=== PATIENT | female | born 1980 | race American Indian/Alaskan Native ===

== ENCOUNTER 2016-09-13 04:49 | Inpatient (IN) | payer OTHER ==
[2016-09-13 05:45] LABS: Basophils % (Auto) 0.4 % (0.0-1.8); Eosinophils % (Auto) 0.7 % (0.0-4.3); Hematocrit 35.8 % (30.3-42.9); Hemoglobin 11.7 gm/dl (10.1-14.3); Mean Corpuscular HGB Conc 33 % (30-34); Mean Corpuscular Hemoglobin 27 pg (28-32); Mean Corpuscular Volume 82 fl (79-97); Platelet Count 360 K/mm3 (140-440); Red Blood Count 4.39 M/mm3 (3.65-5.03); Red Cell Distribution Width 13.2 % (13.2-15.2); White Blood Count 14.8 K/mm3 (4.5-11.0)
[2016-09-13 06:07] LABS: Alanine Aminotransferase 13 units/L (7-56); Albumin 4.5 g/dL (3.9-5); Albumin/Globulin Ratio 1.3 %; Alkaline Phosphatase 89 units/L (35-129); Anion Gap 23 mmol/L; Blood Urea Nitrogen 15 mg/dL (7-17); Calcium 9.5 mg/dL (8.4-10.2); Carbon Dioxide 20 mmol/L (22-30); Chloride 101.2 mmol/L (98-107); Glucose 175 mg/dL (65-100); Lipase 17 units/L (13-60); Potassium 3.6 mmol/L (3.6-5.0); Sodium 141 mmol/L (137-145); Total Protein 8.1 g/dL (6.3-8.2)
[2016-09-13] MEDS ORDERED: ZOFRAN ONE (06:36)
[2016-09-13] MEDS ORDERED: ZOFRAN IV ONE ×2 (06:37→07:07)
[2016-09-13 06:56] LABS: Bacteria,Urine 1+ /HPF (Negative); Bilirubin,Urine NEG (Negative); Blood,Urine LG (Negative); Ketones,Urine 80 mg/dL (Negative); Leukocyte Esterase,Urine NEG (Negative); Mucus,Urine 3+ /HPF; Nitrite,Urine NEG (Negative); Urobilinogen,Urine < 2.0 mg/dL (<2.0)
[2016-09-13] MEDS ORDERED: ATIVAN IV ONE ×2 (07:07→09:25)
[2016-09-13] MEDS ORDERED: NACL 0.9% 1000 ML IV ONE (07:07)
[2016-09-13] MEDS ORDERED: PROTONIX IV ONE (07:07)
--- NOTE | 2016-09-13 07:09 | Emergency Department Report ---
HPI - General Chief Complaint: Abdominal Pain Time Seen by Provider: 09/13/16 06:59 - HPI HPI: Chief complaint: Nausea vomiting and abdominal pain HPI: Patient is a 35-year-old female with long history of reflux and gastroparesis states for the last 2 days she's been having nausea and vomiting too numerous to count and 2 episodes of diarrhea. Patient states this is her typical gastroparesis pain describes it as sharp and diffuse. Nothing makes it better or worse. Patient is status post cholecystectomy, tubal ligation and C- section 3. There is no abdominal swelling or fever. Patient last had narcotics last week for tooth problems. Mode of arrival: private car Source: Patient Began: see above Duration: 2 days Context: see above Quality:sharp Severity: 10 out of 10 Improved with: nothing Worsened with: nothing Associated signs and symptoms: see above ED Past Medical Hx - Past Medical History Previous Medical History?: Yes Hx GERD: Yes Hx Headaches / Migraines: Yes Hx Kidney Stones: Yes (2010) Additional medical history: GASTROPARESIS - Surgical History Past Surgical History?: Yes Hx Cholecystectomy: Yes Additional Surgical History: x 2 , left ovary removed - Social History Smoking Status: Never Smoker Substance Use Type: None - Medications Home Medications: Home Medications Medication Instructions Recorded Confirmed Last Taken Type Doxycycline [Vibramycin] 100 mg PO Q12HR 09/13/16 09/13/16 09/12/16 History ED Review of Systems ROS: Stated complaint: CP Other details as noted in HPI ROS Constitutional: No fever ENT: No uri symptoms Cardiovascular: No chest pain Respiratory: No sob or cough GI: See HPI : No dysuria frequency or urgency, Skin: No rash Neuro: No focal weakness or numbness Psych: No depression Dao/lymph: No edema Physical Exam - Physical Exam Vital Signs: Vital Signs 09/13/16 09/13/16 05:04 06:22 Temperature 98.7 F 98.1 F Pulse Rate 88 78 Respiratory 24 16 Rate Blood Pressure 112/84 Blood Pressure 93/56 [Left] O2 Sat by Pulse 100 100 Oximetry Physical Exam: GENERAL: The patient is well-developed well-nourished . Bilious emesis. Patient appears uncomfortable. HEENT: Normocephalic. Atraumatic. Extraocular motions are intact. Patient has moist mucous membranes. NECK: Supple. No meningitic signs are noted. There is no adenopathy noted. CHEST/LUNGS: Clear to auscultation. There is no respiratory distress noted. HEART/CARDIOVASCULAR: Regular. There is no tachycardia. There is no gallop rub or murmur. ABDOMEN: Abdomen is soft, nontender. Patient has normal bowel sounds. There is no abdominal distention. SKIN: There is no rash. There is no edema. There is no diaphoresis. NEURO: The patient is awake, alert, and oriented. The patient is cooperative. The patient has no focal neurologic deficits. The patient has normal speech. MUSCULOSKELETAL: There is no tenderness or deformity. There is no limitation range of motion. There is no evidence of acute injury. ED Course Vital Signs 09/13/16 09/13/16 05:04 06:22 Temperature 98.7 F 98.1 F Pulse Rate 88 78 Respiratory 24 16 Rate Blood Pressure 112/84 Blood Pressure 93/56 [Left] O2 Sat by Pulse 100 100 Oximetry - Reevaluation(s) Reevaluation #1: 09/13/16 07:12 Patient given 4 mg of IV Zofran prior to my evaluation. Patient will be given a liter of normal saline, another 4 mg of Zofran, 1 mg of Ativan and 40 mg of IV Protonix. 09/13/16 10:22 Patient continues to have emesis and was given 4 mg morphine, 4 mg of Zofran and 25 mg suppository of Phenergan. Patient also given a second milligram of Ativan. Patient states she cannot take Reglan. Patient states she is in when she has this problem she has been admitted for several days. ED Medical Decision Making - Lab Data Result diagrams: 09/13/16 05:24 09/13/16 05:24 Laboratory Tests 09/13/16 09/13/16 05:24 06:22 Lipase 17 Ur Specific [place] 1.024 Urine Protein 100 mg/dl Urine Glucose (UA) Neg Urine Ketones 80 Urine Blood Lg Urine HCG, Qual Negative - EKG Data -: EKG Interpreted by Me EKG shows normal: sinus rhythm Rate: normal (71) - EKG Data When compared to previous EKG there are: no significant change Interpretation: normal EKG Critical care attestation.: If time is entered above; I have spent that time in minutes in the direct care of this critically ill patient, excluding procedure time. ED Disposition Clinical Impression: Gastroparesis Disposition: OP ADMITTED IP TO THIS HOSP Is pt being admited?: Yes Does the pt Need Aspirin: No Condition: Fair Instructions: Abdominal Pain (ED) Referrals: PRIMARY CARE, [Primary Care Provider] - 3-5 Days Time of Disposition: 10:22 (admit to the hospitalist)
[2016-09-13] MEDS ORDERED: MORPHINE IV ONE (08:38)
[2016-09-13] MEDS ORDERED: PHENERGAN PR ONE (08:48)
[2016-09-13] MEDS ORDERED: ATIVAN ONE (09:23)
[2016-09-13] MEDS ORDERED: NOVOLOG SUB-Q SCH (11:30)
[2016-09-13] MEDS ORDERED: D50W (25GM) IV PRN (11:50)
[2016-09-13] MEDS: PROTONIX IV SCH ×2 (13:25→23:10)
[2016-09-13] MEDS: MORPHINE IV PRN ×3 (13:39→23:34)
[2016-09-13] MEDS: ZOFRAN IV PRN ×2 (13:39→18:45)
--- NOTE | 2016-09-13 14:57 | History and Physical Report ---
History of Present Illness Date of examination: 09/13/16 Date of admission: 09/13/16 11:47 Chief complaint: Abdominal pain nausea vomiting. History of present illness: Patient is a 35-year-old lady who presented emergency department with severe abdominal pain and epigastric in location nausea vomiting. Vomited about 8 times a day for the past 3 days since onset of symptoms. Denies any hematemesis or melena. Came to the emergency department where patient was found to have elevated blood sugar with UTI. A1c was 5.1. Admission was therefore requested. Past History Past Medical History: other (UTI, abdominal pain nausea vomiting, hyperemesis gravidarum) Social history: denies: smoking, alcohol abuse Family history: no significant family history Medications and Allergies Allergies Allergy/AdvReac Type Severity Reaction Status Date / Time metoclopramide HCl AdvReac Mild Unknown Verified 04/11/16 09:25 [From [facility]] Home Medications Medication Instructions Recorded Confirmed Last Taken Type Doxycycline [Vibramycin] 100 mg PO Q12HR 09/13/16 09/13/16 09/12/16 History Active Meds: Active Medications Dextrose/Sodium Chloride (D5/0.45ns) 1,000 mls @ 150 mls/hr IV DIRECT KENNY Morphine Sulfate (Morphine) 4 mg IV Q4H PRN PRN Reason: Pain, Moderate (4-6) Last Admin: 09/13/16 13:39 Dose: 4 mg Ondansetron HCl (Zofran) 4 mg IV Q4H PRN PRN Reason: Nausea And Vomiting Last Admin: 09/13/16 13:39 Dose: 4 mg Pantoprazole Sodium (Protonix) 40 mg IV BID [facility] Last Admin: 09/13/16 13:25 Dose: Not Given Review of system Constitutional: Well Nouridhed and Well developed. Head: NC/ AT Eyes: Denies any visual impairments. No discharge from the eyes Nose: Denies any rhinorrhea or epistaxis Throats: Denies any post nasal drainage. Ears: Denies any hearing deficits Cardiovascular system: Denies any chest pain, shortness of breath, orthopnea, paroxysmal nocturnal dyspnea, or palpitation. Respiratory system: Denies any cough, difficulty breathing, wheezing, pleuritic chest pain, Gastrointestinal system: Has abdominal pain, nausea vomiting, No hematemesis or melena. Neurological system: Denies any headache, slurred speech, facial droop, lateralizing weakness Genitalia system: Denies any dysuria, urinary frequency or urgency, urethral discharge Skin: No rashes, hyperpigmented spots. Hematological: Denies any cervical tenderness hemorrhages or petechia. Immunological: Denies any multiple septic spots, Lymphatic: Denies any generalized lymphadenopathy. Endocrine: Denies any polyuria, polydipsia, polyphagia. No heat or cold intolerance. Musculoskeletal system: No joint pain or swelling. Psych: No visual, tactile, auditory or hallucination Exam - Constitutional Vitals: Temp Pulse Resp BP Pulse Ox 98.0 F 82 16 104/59 100 09/13/16 13:00 09/13/16 13:00 09/13/16 13:00 09/13/16 13:00 09/13/16 13:00 General appearance: Present: no acute distress, well-nourished - EENT Eyes: Present: PERRL ENT: hearing intact, clear oral mucosa - Neck Neck: Present: supple, normal ROM - Respiratory Respiratory effort: normal Respiratory: bilateral: CTA - Cardiovascular Heart Sounds: Present: S1 & S2. Absent: rub, click - Extremities Extremities: pulses symmetrical, No edema Peripheral Pulses: within normal limits - Abdominal General gastrointestinal: Present: soft, non-tender, non-distended, normal bowel sounds Female genitourinary: Present: normal - Integumentary Integumentary: Present: clear, warm, dry - Musculoskeletal Musculoskeletal: gait normal, strength equal bilaterally - Psychiatric Psychiatric: appropriate mood/affect, intact judgment & insight - Neurologic Neurologic: CNII-XII intact, moves all extremities Results - Labs CBC & Chem 7: 09/13/16 05:24 09/13/16 05:24 Assessment and Plan Admit patient to medical floor 1. Gastroparesis: Commence patient on nothing by mouth IV fluid with D5 half- normal. IV Protonix, IV Zofran. 2. UTI; urine culture. IV Levaquin. 3. Hypoglycemia of undetermined icicles significance. A1c is 5.1. This 4. Leukocytosis likely secondary to UTI. We will trend. 5. DVT prophylaxis with Lovenox and GI prophylaxis with Protonix. Discussed management plan with patient who expressed understanding. Spent 32 minutes during this admission process
[2016-09-13] MEDS: LEVAQUIN 750MG/150ML 750 MG/150 ML BAG IV SCH (15:14)
[2016-09-13] MEDS: D5/0.45NS 1,000 ML IV SCH (15:15)
[2016-09-13] MEDS ORDERED: D5NS 0.2% 1,000 ML IV SCH (15:30)
[2016-09-13 17:25] LABS: Alanine Aminotransferase 12 units/L (7-56); Albumin 4.2 g/dL (3.9-5); Albumin/Globulin Ratio 1.2 %; Alkaline Phosphatase 80 units/L (35-129); Anion Gap 24 mmol/L; Bilirubin,Total 0.7 mg/dL (0.1-1.2); Blood Urea Nitrogen 13 mg/dL (7-17); Calcium 8.8 mg/dL (8.4-10.2); Carbon Dioxide 17 mmol/L (22-30); Chloride 103.1 mmol/L (98-107); Glucose 117 mg/dL (65-100); Potassium 3.7 mmol/L (3.6-5.0); Sodium 140 mmol/L (137-145); Total Protein 7.6 g/dL (6.3-8.2)
[2016-09-14 09:23] LABS: Hematocrit 31.4 % (30.3-42.9); Hemoglobin 10.4 gm/dl (10.1-14.3); Mean Corpuscular HGB Conc 33 % (30-34); Mean Corpuscular Hemoglobin 27 pg (28-32); Mean Corpuscular Volume 82 fl (79-97); Platelet Count 315 K/mm3 (140-440); Red Blood Count 3.83 M/mm3 (3.65-5.03); Red Cell Distribution Width 13.4 % (13.2-15.2); White Blood Count 9.1 K/mm3 (4.5-11.0)
[2016-09-14] MEDS: MORPHINE IV PRN ×3 (09:25→22:29)
[2016-09-14] MEDS: PROTONIX IV SCH ×2 (09:30→22:29)
[2016-09-14] MEDS: LEVAQUIN 750MG/150ML 750 MG/150 ML BAG IV SCH (09:36)
[2016-09-14] MEDS: PROAMATINE PO SCH ×2 (09:41→18:23)
--- NOTE | 2016-09-14 13:43 | Progress Note ---
Assessment and Plan Assessment and plan: 1. Possible gastritis / GERD with vomitting- improving; cont PPI; will start full liquid diet and advance as tolerated; she will be referred to GI as outpatient for further evaluation 2. UTI -cont levaquin; wbc is now normal 3.DVT prophylaxis-lovenox for d/c in the a.m if able to tolerate diet History Interval history: f/u UTl; vomitting Patient seen at the bedside; no more vomiting; had pain in the epigastrium but not now; no urinary symptoms Hospitalist Physical - Constitutional Vitals: Temp Pulse Resp BP Pulse Ox 98.5 F 68 18 110/65 100 09/14/16 08:00 09/14/16 08:00 09/14/16 08:00 09/14/16 08:00 09/14/16 08:00 General appearance: Present: no acute distress, well-nourished - EENT Eyes: Present: PERRL, EOM intact. Absent: scleral icterus, conjunctival injection ENT: hearing intact, clear oral mucosa - Neck Neck: Present: supple, normal ROM. Absent: enlarged thyroid, masses or JVD - Respiratory Respiratory effort: normal Respiratory: negative: diminished, rales, rhonchi, wheezing - Cardiovascular Rhythm: regular Heart Sounds: Present: S1 & S2. Absent: gallop - Extremities Extremities: no ischemia, pulses intact, pulses symmetrical, No edema Peripheral Pulses: within normal limits - Abdominal General gastrointestinal: soft, non-tender, non-distended, normal bowel sounds - Integumentary Integumentary: Present: clear - Psychiatric Psychiatric: appropriate mood/affect, intact judgment & insight, cooperative - Neurologic Neurologic: CNII-XII intact, moves all extremities Results - Labs CBC & Chem 7: 09/14/16 08:46 09/13/16 13:17 Labs: Laboratory Last Values WBC 9.1 K/mm3 (4.5-11.0) 09/14/16 08:46 RBC 3.83 M/mm3 (3.65-5.03) 09/14/16 08:46 Hgb 10.4 gm/dl (10.1-14.3) 09/14/16 08:46 Hct 31.4 % (30.3-42.9) 09/14/16 08:46 MCV 82 fl (79-97) 09/14/16 08:46 MCH 27 pg (28-32) L 09/14/16 08:46 MCHC 33 % (30-34) 09/14/16 08:46 RDW 13.4 % (13.2-15.2) 09/14/16 08:46 Plt Count 315 K/mm3 (140-440) 09/14/16 08:46 Lymph % (Auto) 10.2 % (13.4-35.0) L 09/13/16 05:24 [place] % (Auto) 5.3 % (0.0-7.3) 09/13/16 05:24 Eos % (Auto) 0.7 % (0.0-4.3) 09/13/16 05:24 Baso % (Auto) 0.4 % (0.0-1.8) 09/13/16 05:24 Lymph # 1.5 K/mm3 (1.2-5.4) 09/13/16 05:24 [place] # 0.8 K/mm3 (0.0-0.8) 09/13/16 05:24 Eos # 0.1 K/mm3 (0.0-0.4) 09/13/16 05:24 Baso # 0.1 K/mm3 (0.0-0.1) 09/13/16 05:24 Seg Neutrophils % 83.4 % (40.0-70.0) H 09/13/16 05:24 Seg Neutrophils # 12.4 K/mm3 (1.8-7.7) H 09/13/16 05:24 Sodium 140 mmol/L (137-145) 09/13/16 13:17 Potassium 3.7 mmol/L (3.6-5.0) 09/13/16 13:17 Chloride 103.1 mmol/L (98-107) 09/13/16 13:17 Carbon Dioxide 17 mmol/L (22-30) L 09/13/16 13:17 Anion Gap 24 mmol/L 09/13/16 13:17 BUN 13 mg/dL (7-17) 09/13/16 13:17 Creatinine 0.5 mg/dL (0.7-1.2) L 09/13/16 13:17 Estimated GFR > 60 ml/min 09/13/16 13:17 BUN/Creatinine Ratio 26.00 % 09/13/16 13:17 Glucose 117 mg/dL (65-100) H 09/13/16 13:17 Hemoglobin A1c 5.1 % (4-6) 09/13/16 05:24 Calcium 8.8 mg/dL (8.4-10.2) 09/13/16 13:17 Total Bilirubin 0.7 mg/dL (0.1-1.2) 09/13/16 13:17 AST 20 units/L (5-40) 09/13/16 13:17 ALT 12 units/L (7-56) 09/13/16 13:17 Alkaline Phosphatase 80 units/L (35-129) 09/13/16 13:17 Total Protein 7.6 g/dL (6.3-8.2) 09/13/16 13:17 Albumin 4.2 g/dL (3.9-5) 09/13/16 13:17 Albumin/Globulin Ratio 1.2 % 09/13/16 13:17 Triglycerides 38 mg/dL (2-149) 09/13/16 13:17 Cholesterol 126 mg/dL (50-199) 09/13/16 13:17 LDL Cholesterol Direct 62 mg/dL (50-130) 09/13/16 13:17 HDL Cholesterol 57 mg/dL (40-59) 09/13/16 13:17 Cholesterol/HDL Ratio 2.21 % 09/13/16 13:17 Lipase 17 units/L (13-60) 09/13/16 05:24 Urine Color Yellow (Yellow) 09/13/16 06:22 Urine Turbidity Slightly-cloudy (Clear) 09/13/16 06:22 Urine pH 5.0 (5.0-7.0) 09/13/16 06:22 Ur Specific [place] 1.024 (1.003-1.030) 09/13/16 06:22 Urine Protein 100 mg/dl mg/dL (Negative) 09/13/16 06:22 Urine Glucose (UA) Neg mg/dL (Negative) 09/13/16 06:22 Urine Ketones 80 mg/dL (Negative) 09/13/16 06:22 Urine Blood Lg (Negative) 09/13/16 06:22 Urine Nitrite Neg (Negative) 09/13/16 06:22 Urine Bilirubin Neg (Negative) 09/13/16 06:22 Urine Urobilinogen < 2.0 mg/dL (<2.0) 09/13/16 06:22 Ur Leukocyte Esterase Neg (Negative) 09/13/16 06:22 Urine WBC (Auto) 12.0 /HPF (0.0-6.0) H 09/13/16 06:22 Urine RBC (Auto) 16.0 /HPF (0.0-6.0) 09/13/16 06:22 U Epithel Cells (Auto) 5.0 /HPF (0-13.0) 09/13/16 06:22 Urine Bacteria (Auto) 1+ /HPF (Negative) 09/13/16 06:22 Urine Mucus 3+ /HPF 09/13/16 06:22 Urine HCG, Qual Negative (Negative) 09/13/16 06:22
[2016-09-14 14:08] LABS: Alanine Aminotransferase 12 units/L (7-56); Albumin 3.9 g/dL (3.9-5); Albumin/Globulin Ratio 1.3 %; Alkaline Phosphatase 67 units/L (35-129); Anion Gap 19 mmol/L; Blood Urea Nitrogen 11 mg/dL (7-17); Calcium 8.5 mg/dL (8.4-10.2); Carbon Dioxide 23 mmol/L (22-30); Chloride 103.4 mmol/L (98-107); Glucose 84 mg/dL (65-100); Potassium 3.1 mmol/L (3.6-5.0); Sodium 142 mmol/L (137-145)
[2016-09-14] MEDS: ZOFRAN IV PRN ×3 (14:51→22:29)
[2016-09-14] MEDS: D5/0.45NS 1,000 ML IV SCH (18:15)
[2016-09-14 20:24] LABS: Basophils % (Auto) 0.3 % (0.0-1.8); Hematocrit 31.8 % (30.3-42.9); Hemoglobin 10.6 gm/dl (10.1-14.3); Mean Corpuscular HGB Conc 33 % (30-34); Mean Corpuscular Hemoglobin 27 pg (28-32); Mean Corpuscular Volume 82 fl (79-97); Platelet Count 308 K/mm3 (140-440); Red Cell Distribution Width 13.1 % (13.2-15.2); White Blood Count 8.2 K/mm3 (4.5-11.0)
[2016-09-15] MEDS: D5/0.45NS 1,000 ML IV SCH ×2 (00:49→07:23)
[2016-09-15] MEDS: PROAMATINE PO SCH ×2 (00:49→11:37)
[2016-09-15] MEDS: ZOFRAN IV PRN ×4 (07:23→20:45)
[2016-09-15] MEDS: MORPHINE IV PRN ×4 (07:24→20:44)
--- NOTE | 2016-09-15 08:30 | Admit Criteria Form ---
Admission Criteria Documentation: VOMITING Clinical Indications for Admission to Inpatient Care ( Place 'X' for any and all applicable criteria): Admission is indicated for ANY ONE of the following(1)(2)(3): [X]I. Inpatient admission required rather than observation care because of ANY ONE of the following: [ ]i) Hemodynamic instability that is severe or persistent [X]ii) Vomiting that is severe or persistent [ ]iii) Severe electrolyte abnormalities requiring inpatient care [ ]iv) Severe pain requiring acute inpatient management [ ]v) High fever or infection requiring inpatient admission as indicated by ANY ONE of the following(7)(8): [ ]1) Appropriate outpatient or observation care antimicrobial treatment unavailable, not effective, or not feasible [ ]2) Documented bacteremia [ ]3) Temp >104.9 degrees F (40.5 degrees C) (oral) [ ]4) Temp >103.1 degrees F (39.5 C) (oral) or <96.8 degrees F (36 C) (rectal) that does not respond to all emergency treatment measures [ ]vi) Acute renal failure [ ]vii) IV fluid to replace significant ongoing losses (greater than 3 L/m2 per day) [ ]viii) Parenteral nutrition regimen that must be implemented on inpatient basis [ ]ix) Other condition, treatment or monitoring requiring inpatient admission [ ]II. Complete or partial gastrointestinal obstruction [ ]III. Other cause of vomiting requiring hospitalization (eg, poisoning, increased intracranial pressure) [ ]IV. Vomiting due to significant metabolic derangement (eg, severe hypercalcemia, diabetic ketoacidosis) Extended stay beyond goal length of stay may be needed for(1)(4): [ ]a) Severe vomiting [ ]b) Persistent vomiting, vital sign changes, severe electrolyte imbalance , or diagnosed cause of vomiting that requires continued hospitalization (eg, gastrointestinal obstruction , increased intracranial pressure) [ ]c) Surgery to treat identified causes of vomiting (eg, bowel obstruction , intracranial process) [ ]d) Comorbid illness that requires inpatient care (eg, acute heart failure , renal failure) [ ]e) Need for inpatient endoscopy The original [facility] [email or web address] content created by [facility] [employer] has been revised. The portions of the content which have been revised are identified through the use of italic text or in bold, and [facility] [employer] has neither reviewed nor approved the modified material. All other unmodified content is copyright [facility]. Please see references footnoted in the original [facility] edition 2016 Admission Criteria Met: Yes
[2016-09-15] MEDS: PROTONIX IV SCH ×2 (11:35→21:00)
[2016-09-15] MEDS: LEVAQUIN 750MG/150ML 750 MG/150 ML BAG IV SCH (11:38)
[2016-09-15 11:47] LABS: Anion Gap 18 mmol/L; Blood Urea Nitrogen 7 mg/dL (7-17); Calcium 8.1 mg/dL (8.4-10.2); Carbon Dioxide 23 mmol/L (22-30); Chloride 101.3 mmol/L (98-107); Glucose 108 mg/dL (65-100); Sodium 139 mmol/L (137-145)
[2016-09-15 11:51] LABS: Potassium 2.8 mmol/L (3.6-5.0)
--- NOTE | 2016-09-15 12:28 | Progress Note ---
Assessment and Plan Assessment and plan: 1. Possible gastritis / GERD / PUD with vomitting-cont PPI; keep NPO- not tolerating diet; consult GI; 2. UTI -d/c cont levaquina after today's dose; today is day 3 3. Moderate hypokalemia due to GI loss- will replace with IV supplementation; check Mag / PO4; monitor 4. DVT prophylaxis-lovenox History Interval history: f/u UTl; vomitting Patient seen at the bedside; vomitted last night; nausea with retching; epigastric pain Hospitalist Physical - Constitutional Vitals: Temp Pulse Resp BP Pulse Ox 98.2 F 65 20 117/74 100 09/15/16 07:00 09/15/16 07:00 09/15/16 07:00 09/15/16 07:00 09/15/16 07:00 General appearance: Present: no acute distress, well-nourished - EENT Eyes: Present: PERRL, EOM intact. Absent: scleral icterus, conjunctival injection ENT: hearing intact, clear oral mucosa, no oropharyngeal erythema, no poor dentition - Neck Neck: Present: supple, normal ROM. Absent: enlarged thyroid, masses or JVD - Respiratory Respiratory effort: normal Respiratory: negative: diminished, rales, rhonchi, wheezing - Cardiovascular Rhythm: regular Heart Sounds: Present: S1 & S2. Absent: gallop - Extremities Extremities: no ischemia, pulses intact, pulses symmetrical, No edema Peripheral Pulses: within normal limits - Abdominal General gastrointestinal: soft, tender (epigastrium), non-distended, normal bowel sounds - Integumentary Integumentary: Present: clear - Psychiatric Psychiatric: appropriate mood/affect, intact judgment & insight, cooperative - Neurologic Neurologic: CNII-XII intact, moves all extremities Results - Labs CBC & Chem 7: 09/14/16 20:01 09/15/16 10:53 Labs: Laboratory Last Values WBC 8.2 K/mm3 (4.5-11.0) 09/14/16 20:01 RBC 3.90 M/mm3 (3.65-5.03) 09/14/16 20:01 Hgb 10.6 gm/dl (10.1-14.3) 09/14/16 20:01 Hct 31.8 % (30.3-42.9) 09/14/16 20:01 MCV 82 fl (79-97) 09/14/16 20:01 MCH 27 pg (28-32) L 09/14/16 20:01 MCHC 33 % (30-34) 09/14/16 20:01 RDW 13.1 % (13.2-15.2) L 09/14/16 20:01 Plt Count 308 K/mm3 (140-440) 09/14/16 20:01 Lymph % (Auto) 20.5 % (13.4-35.0) 09/14/16 20:01 [place] % (Auto) 10.5 % (0.0-7.3) H 09/14/16 20:01 Eos % (Auto) 3.0 % (0.0-4.3) 09/14/16 20:01 Baso % (Auto) 0.3 % (0.0-1.8) 09/14/16 20:01 Lymph # 1.7 K/mm3 (1.2-5.4) 09/14/16 20:01 [place] # 0.9 K/mm3 (0.0-0.8) H 09/14/16 20:01 Eos # 0.2 K/mm3 (0.0-0.4) 09/14/16 20:01 Baso # 0.0 K/mm3 (0.0-0.1) 09/14/16 20:01 Seg Neutrophils % 65.7 % (40.0-70.0) 09/14/16 20:01 Seg Neutrophils # 5.4 K/mm3 (1.8-7.7) 09/14/16 20:01 Sodium 139 mmol/L (137-145) 09/15/16 10:53 Potassium 2.8 mmol/L (3.6-5.0) L* 09/15/16 10:53 Chloride 101.3 mmol/L (98-107) 09/15/16 10:53 Carbon Dioxide 23 mmol/L (22-30) 09/15/16 10:53 Anion Gap 18 mmol/L 09/15/16 10:53 BUN 7 mg/dL (7-17) 09/15/16 10:53 Creatinine 0.4 mg/dL (0.7-1.2) L 09/15/16 10:53 Estimated GFR > 60 ml/min 09/15/16 10:53 BUN/Creatinine Ratio 17.50 % 09/15/16 10:53 Glucose 108 mg/dL (65-100) H 09/15/16 10:53 POC Glucose 103 (70-105) 09/15/16 12:04 Hemoglobin A1c 5.1 % (4-6) 09/13/16 05:24 Calcium 8.1 mg/dL (8.4-10.2) L 09/15/16 10:53 Total Bilirubin 1.0 mg/dL (0.1-1.2) 09/14/16 13:29 AST 20 units/L (5-40) 09/14/16 13:29 ALT 12 units/L (7-56) 09/14/16 13:29 Alkaline Phosphatase 67 units/L (35-129) 09/14/16 13:29 Total Protein 7.0 g/dL (6.3-8.2) 09/14/16 13:29 Albumin 3.9 g/dL (3.9-5) 09/14/16 13:29 Albumin/Globulin Ratio 1.3 % 09/14/16 13:29 Triglycerides 38 mg/dL (2-149) 09/13/16 13:17 Cholesterol 126 mg/dL (50-199) 09/13/16 13:17 LDL Cholesterol Direct 62 mg/dL (50-130) 09/13/16 13:17 HDL Cholesterol 57 mg/dL (40-59) 09/13/16 13:17 Cholesterol/HDL Ratio 2.21 % 09/13/16 13:17 Lipase 17 units/L (13-60) 09/13/16 05:24 Urine Color Yellow (Yellow) 09/13/16 06:22 Urine Turbidity Slightly-cloudy (Clear) 09/13/16 06:22 Urine pH 5.0 (5.0-7.0) 09/13/16 06:22 Ur Specific [place] 1.024 (1.003-1.030) 09/13/16 06:22 Urine Protein 100 mg/dl mg/dL (Negative) 09/13/16 06:22 Urine Glucose (UA) Neg mg/dL (Negative) 09/13/16 06:22 Urine Ketones 80 mg/dL (Negative) 09/13/16 06:22 Urine Blood Lg (Negative) 09/13/16 06:22 Urine Nitrite Neg (Negative) 09/13/16 06:22 Urine Bilirubin Neg (Negative) 09/13/16 06:22 Urine Urobilinogen < 2.0 mg/dL (<2.0) 09/13/16 06:22 Ur Leukocyte Esterase Neg (Negative) 09/13/16 06:22 Urine WBC (Auto) 12.0 /HPF (0.0-6.0) H 09/13/16 06:22 Urine RBC (Auto) 16.0 /HPF (0.0-6.0) 09/13/16 06:22 U Epithel Cells (Auto) 5.0 /HPF (0-13.0) 09/13/16 06:22 Urine Bacteria (Auto) 1+ /HPF (Negative) 09/13/16 06:22 Urine Mucus 3+ /HPF 09/13/16 06:22 Urine HCG, Qual Negative (Negative) 09/13/16 06:22
[2016-09-15 13:58] LABS: Magnesium 1.6 mg/dL (1.7-2.3); Phosphorous 1.8 mg/dL (2.5-4.5)
--- NOTE | 2016-09-15 14:29 | Gastroenterology Consultation ---
History of Present Illness - Reason for Consult Consult date: 09/15/16 Epigastric pain, nausea/vomiting, heartburn Requesting physician: DEANGELO DOBBS - History of Present Illness Asked to see this pleasant 35yo woman for evaluation of epigastric pain, vomiting and heartburn. She states that heartburn has been since 2000; she is presently on Prilosec 20mg OTC at home w/o success. She also attests to burning upper abdominal pain and periods of N/V; she was tried on a diet during her hospitalization, but states "it came right back up." No black, tarry stools , chest pain/SOB. Pt also has reported gastroparesis secondary to DM. Past History Past Medical History: other (UTI, abdominal pain nausea vomiting, hyperemesis gravidarum) Past Surgical History: , Other (tubal ligation) Social history: denies: smoking, alcohol abuse Family history: no significant family history Medications and Allergies Allergies Allergy/AdvReac Type Severity Reaction Status Date / Time metoclopramide HCl AdvReac Mild Unknown Verified 04/11/16 09:25 [From [facility]] Home Medications Medication Instructions Recorded Confirmed Last Taken Type Doxycycline [Vibramycin] 100 mg PO Q12HR 09/13/16 09/13/16 09/12/16 History Active Meds: Active Medications Levofloxacin/Dextrose (Levaquin 750mg/150ml) 750 mg in 150 mls @ 100 mls/hr IV Q24HR KENNY PRN Reason: Protocol Stop: 09/16/16 14:59 Last Admin: 09/15/16 11:38 Dose: 100 mls/hr Potassium Chloride/Dextrose/Sod Cl (D5w/0.45% Nacl/Kcl 20 Meq) 20 meq in 1,000 mls @ 100 mls/hr IV DIRECT KENNY Potassium Chloride (Kcl 20meq/100ml) 20 meq in 100 mls @ 100 mls/hr IV Q1H KENNY Stop: 09/15/16 15:59 Morphine Sulfate (Morphine) 4 mg IV Q4H PRN PRN Reason: Pain, Moderate (4-6) Last Admin: 09/15/16 11:35 Dose: 4 mg Ondansetron HCl (Zofran) 4 mg IV Q4H PRN PRN Reason: Nausea And Vomiting Last Admin: 09/15/16 11:35 Dose: 4 mg Pantoprazole Sodium (Protonix) 40 mg IV BID KENNY Last Admin: 09/15/16 11:35 Dose: 40 mg Review of Systems - Review of Systems All systems: negative (abdominal pain, nausea/vomiting, heartburn) Exam - Constitutional Vital Signs: Temp Pulse Resp BP Pulse Ox 98.2 F 65 20 117/74 100 09/15/16 07:00 09/15/16 07:00 09/15/16 07:00 09/15/16 07:00 09/15/16 07:00 General appearance: no acute distress - Neck Neck: supple - Respiratory Respiratory: bilateral: CTA - Cardiovascular Rhythm: regular Heart Sounds: Present: S1 & S2 Extremities: No edema - Gastrointestinal General gastrointestinal: Present: soft, non-tender, non-distended, normal bowel sounds - Integumentary Integumentary: Present: clear - Neurologic Neurological: alert and oriented x3 - Psychiatric Psychiatric: appropriate mood/affect - Labs CBC & Chem 7: 09/14/16 20:01 09/15/16 10:53 Lab Results: Laboratory Results - last 24 hr 09/14/16 09/15/16 09/15/16 20:01 07:34 10:53 WBC 8.2 RBC 3.90 Hgb 10.6 Hct 31.8 MCV 82 MCH 27 L MCHC 33 RDW 13.1 L Plt Count 308 Lymph % (Auto) 20.5 [place] % (Auto) 10.5 H Eos % (Auto) 3.0 Baso % (Auto) 0.3 Lymph # 1.7 Geary # 0.9 H Eos # 0.2 Baso # 0.0 Seg Neutrophils % 65.7 Seg Neutrophils # 5.4 Sodium 139 Potassium 2.8 L* Chloride 101.3 Carbon Dioxide 23 Anion Gap 18 BUN 7 Creatinine 0.4 L Estimated GFR > 60 BUN/Creatinine Ratio 17.50 Glucose 108 H POC Glucose 90 Calcium 8.1 L Phosphorus Magnesium 09/15/16 09/15/16 10:53 12:04 WBC RBC Hgb Hct MCV MCH MCHC RDW Plt Count Lymph % (Auto) [place] % (Auto) Eos % (Auto) Baso % (Auto) Lymph # Geary # Eos # Baso # Seg Neutrophils % Seg Neutrophils # Sodium Potassium Chloride Carbon Dioxide Anion Gap BUN Creatinine Estimated GFR BUN/Creatinine Ratio Glucose POC Glucose 103 Calcium Phosphorus 1.8 L Magnesium 1.6 L Assessment and Plan 35yo woman with hx of gastroparesis, with epigastric pain, vomiting, heartburn and inability to tolerate PO. Could be due to esophagitis, gastritis, PUD, gastroparesis. Rec: 1) Cont PPI 2x/day 2) Cont Reglan 3) NPO after MN for EGD tomorrow Thank you for allowing me to participate in the care of your patient. Please do not hesitate to contact me with any questions.
[2016-09-15] MEDS: KCL 20MEQ/100ML 20 MEQ/100 ML BAG IV SCH ×2 (15:38→18:30)
[2016-09-15 18:58] LABS: Eosinophils % (Auto) 0.8 % (0.0-4.3); Hematocrit 31.6 % (30.3-42.9); Hemoglobin 10.4 gm/dl (10.1-14.3); Mean Corpuscular HGB Conc 33 % (30-34); Mean Corpuscular Hemoglobin 27 pg (28-32); Mean Corpuscular Volume 82 fl (79-97); Platelet Count 298 K/mm3 (140-440); Red Blood Count 3.84 M/mm3 (3.65-5.03); Red Cell Distribution Width 13.3 % (13.2-15.2); White Blood Count 7.7 K/mm3 (4.5-11.0)
[2016-09-15] MEDS: D5W/0.45% NACL/KCL 20 MEQ 20 MEQ/1,000 ML BAG IV SCH (20:59)
[2016-09-16 05:21] LABS: Anion Gap 14 mmol/L; BUN/Creatinine Ratio 11.66; Blood Urea Nitrogen 7 mg/dL (7-17); Calcium 7.9 mg/dL (8.4-10.2); Carbon Dioxide 23 mmol/L (22-30); Glucose 91 mg/dL (65-100); Sodium 138 mmol/L (137-145)
[2016-09-16] MEDS ORDERED: POTASSIUM CHLORIDE FEEDTUBE ONE (07:00)
[2016-09-16] MEDS: KCL 10MEQ/100ML 10 MEQ/100 ML BAG IV SCH ×3 (09:13→19:07)
[2016-09-16] MEDS: D5W/0.45% NACL/KCL 20 MEQ 20 MEQ/1,000 ML BAG IV SCH (09:14)
--- NOTE | 2016-09-16 11:26 | Progress Note ---
Assessment and Plan Assessment and plan: 1. Possible gastritis / GERD / PUD with vomiting-cont PPI; keep NPO- not tolerating diet; await EGD 2. UTI -d/c cont levaquin 3. Moderate hypokalemia due to GI loss- will replace with IV supplementation; check Mag / PO4; monitor 4. DVT prophylaxis-lovenox History Interval history: No new issues overnight. Hospitalist Physical - Constitutional Vitals: Temp Pulse Resp BP Pulse Ox 98.9 F 73 15 98/57 100 09/16/16 07:25 09/16/16 07:25 09/16/16 07:25 09/16/16 07:25 09/16/16 07:25 General appearance: Present: no acute distress, well-nourished - EENT Eyes: Present: PERRL, EOM intact ENT: hearing intact, clear oral mucosa, dentition normal - Neck Neck: Present: supple, normal ROM - Respiratory Respiratory effort: normal Respiratory: bilateral: CTA - Cardiovascular Rhythm: regular Heart Sounds: Present: S1 & S2. Absent: gallop, rub - Extremities Extremities: no ischemia, No edema, Full ROM - Abdominal General gastrointestinal: soft, non-tender, non-distended, normal bowel sounds - Integumentary Integumentary: Present: clear, warm, dry - Neurologic Neurologic: CNII-XII intact, moves all extremities Results - Labs CBC & Chem 7: 09/15/16 18:19 09/16/16 04:23 Labs: Laboratory Last Values WBC 7.7 K/mm3 (4.5-11.0) 09/15/16 18: RBC 3.84 M/mm3 (3.65-5.03) 09/15/16 18: Hgb 10.4 gm/dl (10.1-14.3) 09/15/16 18: Hct 31.6 % (30.3-42.9) 09/15/16 18: MCV 82 fl (79-97) 09/15/16 18: MCH 27 pg (28-32) L 09/15/16 18: MCHC 33 % (30-34) 09/15/16 18: RDW 13.3 % (13.2-15.2) 09/15/16 18: Plt Count 298 K/mm3 (140-440) 09/15/16 18:19 Lymph % (Auto) 17.5 % (13.4-35.0) 09/15/16 18:19 [place] % (Auto) 8.6 % (0.0-7.3) H 09/15/16 18:19 Eos % (Auto) 0.8 % (0.0-4.3) 09/15/16 18:19 Baso % (Auto) 1.0 % (0.0-1.8) 09/15/16 18:19 Lymph # 1.3 K/mm3 (1.2-5.4) 09/15/16 18:19 [place] # 0.7 K/mm3 (0.0-0.8) 09/15/16 18:19 Eos # 0.1 K/mm3 (0.0-0.4) 09/15/16 18:19 Baso # 0.1 K/mm3 (0.0-0.1) 09/15/16 18:19 Seg Neutrophils % 72.1 % (40.0-70.0) H 09/15/16 18:19 Seg Neutrophils # 5.5 K/mm3 (1.8-7.7) 09/15/16 18:19 Sodium 138 mmol/L (137-145) 09/16/16 04:23 Potassium 3.0 mmol/L (3.6-5.0) L 09/16/16 04:23 Chloride 104.0 mmol/L (98-107) 09/16/16 04:23 Carbon Dioxide 23 mmol/L (22-30) 09/16/16 04:23 Anion Gap 14 mmol/L 09/16/16 04:23 BUN 7 mg/dL (7-17) 09/16/16 04:23 Creatinine 0.6 mg/dL (0.7-1.2) L 09/16/16 04:23 Estimated GFR > 60 ml/min 09/16/16 04:23 BUN/Creatinine Ratio 11.66 % 09/16/16 04:23 Glucose 91 mg/dL (65-100) 09/16/16 04:23 POC Glucose 99 (70-105) 09/16/16 06:47 Hemoglobin A1c 5.1 % (4-6) 09/13/16 05:24 Calcium 7.9 mg/dL (8.4-10.2) L 09/16/16 04:23 Phosphorus 1.8 mg/dL (2.5-4.5) L 09/15/16 10:53 Magnesium 1.6 mg/dL (1.7-2.3) L 09/15/16 10:53 Total Bilirubin 1.0 mg/dL (0.1-1.2) 09/14/16 13:29 AST 20 units/L (5-40) 09/14/16 13:29 ALT 12 units/L (7-56) 09/14/16 13:29 Alkaline Phosphatase 67 units/L (35-129) 09/14/16 13:29 Total Protein 7.0 g/dL (6.3-8.2) 09/14/16 13:29 Albumin 3.9 g/dL (3.9-5) 09/14/16 13:29 Albumin/Globulin Ratio 1.3 % 09/14/16 13:29 Triglycerides 38 mg/dL (2-149) 09/13/16 13:17 Cholesterol 126 mg/dL (50-199) 09/13/16 13:17 LDL Cholesterol Direct 62 mg/dL (50-130) 09/13/16 13:17 HDL Cholesterol 57 mg/dL (40-59) 09/13/16 13:17 Cholesterol/HDL Ratio 2.21 % 09/13/16 13:17 Lipase 17 units/L (13-60) 09/13/16 05:24 Urine Color Yellow (Yellow) 09/13/16 06:22 Urine Turbidity Slightly-cloudy (Clear) 09/13/16 06:22 Urine pH 5.0 (5.0-7.0) 09/13/16 06:22 Ur Specific [place] 1.024 (1.003-1.030) 09/13/16 06:22 Urine Protein 100 mg/dl mg/dL (Negative) 09/13/16 06:22 Urine Glucose (UA) Neg mg/dL (Negative) 09/13/16 06:22 Urine Ketones 80 mg/dL (Negative) 09/13/16 06:22 Urine Blood Lg (Negative) 09/13/16 06:22 Urine Nitrite Neg (Negative) 09/13/16 06:22 Urine Bilirubin Neg (Negative) 09/13/16 06:22 Urine Urobilinogen < 2.0 mg/dL (<2.0) 09/13/16 06:22 Ur Leukocyte Esterase Neg (Negative) 09/13/16 06:22 Urine WBC (Auto) 12.0 /HPF (0.0-6.0) H 09/13/16 06:22 Urine RBC (Auto) 16.0 /HPF (0.0-6.0) 09/13/16 06:22 U Epithel Cells (Auto) 5.0 /HPF (0-13.0) 09/13/16 06:22 Urine Bacteria (Auto) 1+ /HPF (Negative) 09/13/16 06:22 Urine Mucus 3+ /HPF 09/13/16 06:22 Urine HCG, Qual Negative (Negative) 09/13/16 06:22
[2016-09-16] MEDS ORDERED: KCL 10MEQ/100ML 10 MEQ/100 ML BAG IV ONE (12:00)
[2016-09-16] MEDS: PROTONIX IV SCH (12:23)
--- NOTE | 2016-09-16 14:41 | Anesthesia Day of Surgery ---
Anesthesia Day of Surgery - Day of Surgery Patient Examined: Yes Patient H&P Reviewed: Yes Patient is NPO: Yes
--- NOTE | 2016-09-16 14:49 | Anesthesia Consultation ---
Anesthesia Consult and Med Hx Date of service: 09/16/16 - Airway Anesthetic Teeth Evaluation: Poor (missing #8) ROM Head & Neck: Adequate Mental/Hyoid Distance: Adequate Mallampati Class: Class II Intubation Access Assessment: Probably Good - Pulmonary Exam CTA: Yes - Cardiac Exam Cardiac Exam: RRR - Pre-Operative Health Status ASA Pre-Surgery Classification: ASA1 Proposed Anesthetic Plan: MAC - Pulmonary Hx Smoking: No Hx Asthma: No COPD: No Hx Pneumonia: No - Cardiovascular System Hx Hypertension: No - Central Nervous System Hx Seizures: No CVA: No Hx Psychiatric Problems: No - Gastrointestinal Hx Gastroesophageal Reflux Disease: Yes (not well controlled) - Endocrine Hx Renal Disease: Yes (UTI) Hx End Stage Renal Disease: No Hx Liver Disease: No Hx Non-Insulin Dependent Diabetes: No Hx Hypothyroidism: No Hx Hyperthyroidism: No - Hematic Hx Anemia: No Hx Sickle Cell Disease: No - Other Systems Hx Alcohol Use: No Hx Cancer: No (ovarian cysts s/p left oophorectomy) Hx Obesity: No - Additional Comments Anesthesia Medical History Comments: NAC
[2016-09-16] MEDS ORDERED: DIPRIVAN 10 MG/ML IV ONE ×2 (14:52→16:24)
[2016-09-16] MEDS ORDERED: NACL 0.9% 1000 ML 1,000 ML IV SCH (15:00)
[2016-09-16] MEDS ORDERED: WATER FOR IRRIG STERILE IR ONE (15:21)
[2016-09-16] MEDS ORDERED: K-DUR PO ONE (17:00)
--- NOTE | 2016-09-16 17:04 | Post Operative Note ---
Pre-op diagnosis: N/V/abdominal pain Post-op diagnosis: same Findings: 1. Mildly patulous GE jxn 2. Otherwise normal UGI tract Procedure: EGD Anesthesia: MAC Surgeon: NATALI GUNTER Estimated blood loss: none Pathology: none Specimen disposition: other (N/A) Condition: stable Disposition: floor (Recs: 1. Advance diet. 2. Continue protonix and add librax. 3. OK to d/c when taking PO. 4. No further inpatient w/u needed, but can consider outpatient gastric emptying scan. 5. OK to d/c home per our service.)
[2016-09-16] MEDS ORDERED: MORPHINE IV PRN (17:06)
[2016-09-16] MEDS: LEVAQUIN 750MG/150ML 750 MG/150 ML BAG IV SCH (17:44)
[2016-09-16] MEDS: ZOFRAN IV PRN (19:13)
[2016-09-16 19:14] LABS: Basophils % (Auto) 0.3 % (0.0-1.8); Eosinophils % (Auto) 1.8 % (0.0-4.3); Hematocrit 29.7 % (30.3-42.9); Hemoglobin 9.8 gm/dl (10.1-14.3); Mean Corpuscular HGB Conc 33 % (30-34); Mean Corpuscular Hemoglobin 27 pg (28-32); Mean Corpuscular Volume 82 fl (79-97); Platelet Count 263 K/mm3 (140-440); Red Blood Count 3.62 M/mm3 (3.65-5.03); Red Cell Distribution Width 12.9 % (13.2-15.2); White Blood Count 6.9 K/mm3 (4.5-11.0)
--- NOTE | 2016-09-16 20:26 | Operative Report ---
PROCEDURE PERFORMED: Esophagogastroduodenoscopy. PREOPERATIVE DIAGNOSES: Nausea, vomiting, abdominal pain. POSTOPERATIVE DIAGNOSIS: Normal procedure with no evidence of gastric outlet obstruction. ENDOSCOPIST: Bonilla Catalan MD INSTRUMENT: [employer] video endoscope. MEDICATIONS: MAC anesthesia by [facility]esthesia [facility]. COMPLICATIONS: No apparent complications. ESTIMATED BLOOD LOSS: None. IMPLANTS: None. CERTIFIED DRIVER EXAMINER: None. SPECIMENS: None. CONDITION AT COMPLETION: Stable. TECHNIQUE: The patient was informed of the risks and benefits of the procedure. She signed the informed consent to proceed. She was placed in the left lateral decubitus position. The above sedative medications were given. Her vital signs remained stable throughout the procedure. The instrument was advanced from the mouth to second portion of the duodenum under direct visualization. At that point, the bowel was insufflated and the endoscope was slowly withdrawn. FINDINGS: 1. Mildly patulous gastroesophageal junction. 2. Otherwise, normal upper endoscopy with no evidence of esophagitis or significant gastritis. RECOMMENDATIONS: 1. Continue daily Protonix. 2. Librax for abdominal spasms. 3. With the lack of retained food, I would doubt significant gastroparesis, but we could consider a gastric emptying scan if necessary. JOB# [id number] ROBERT/NTS
[2016-09-16] MEDS ORDERED: PROTONIX IV ONE (21:28)
[2016-09-16] MEDS ORDERED: ATIVAN IV PRN (21:30)
[2016-09-16] MEDS: LIBRAX 5-2.5 MG PO SCH ×2 (21:46→22:00)
[2016-09-17] MEDS: D5W/0.45% NACL/KCL 20 MEQ 20 MEQ/1,000 ML BAG IV SCH (05:41)
[2016-09-17 06:57] LABS: Basophils % (Auto) 0.9 % (0.0-1.8); Eosinophils % (Auto) 4.5 % (0.0-4.3); Hematocrit 29.5 % (30.3-42.9); Hemoglobin 9.9 gm/dl (10.1-14.3); Mean Corpuscular HGB Conc 34 % (30-34); Mean Corpuscular Hemoglobin 27 pg (28-32); Mean Corpuscular Volume 81 fl (79-97); Platelet Count 263 K/mm3 (140-440); Red Blood Count 3.64 M/mm3 (3.65-5.03); Red Cell Distribution Width 12.9 % (13.2-15.2); White Blood Count 5.5 K/mm3 (4.5-11.0)
[2016-09-17 07:03] LABS: Anion Gap 15 mmol/L; Blood Urea Nitrogen 6 mg/dL (7-17); Calcium 8.2 mg/dL (8.4-10.2); Carbon Dioxide 24 mmol/L (22-30); Chloride 103.7 mmol/L (98-107); Glucose 89 mg/dL (65-100); Magnesium 1.7 mg/dL (1.7-2.3); Potassium 3.3 mmol/L (3.6-5.0); Sodium 139 mmol/L (137-145)
[2016-09-17] MEDS: LIBRAX 5-2.5 MG PO SCH ×2 (08:31→11:42)
[2016-09-17 09:37] VITALS: BP 110/66
[2016-09-17] MEDS ORDERED: PROTONIX PO SCH (10:00)
--- NOTE | 2016-09-17 10:51 | Discharge Summary ---
Providers - Providers Date of Admission: 09/13/16 11:47 Date of discharge: 09/17/16 Attending physician: LATOYA ALVAREZ 09/15/16 10:24 Consult to Physician [CONS] Routine Consulting Provider: STANTON SERVIN Reason For Exam: vomitting; upper abdominal pain; h/o GERD Place consult to:: [facility] Notified:: office Phone number called:: [phone] Was contact made?: Yes If yes, spoke with:: pat Time called:: 11:11 Primary care physician: MARKETING COMMUNICATION MANAGER Hospitalization Reason for admission: N/V Condition: Fair Hospital course: This is a 35-year-old female with past medical history of diabetes mellitus and gastroparesis who presented to the emergency department with complaints of epigastric pain, vomiting or heartburn. Patient was evaluated by GI with upper endoscopy. Upper endoscopy reveal mildly patulous GE junction but otherwise normal upper GI tract. Patient was treated with antiemetics and IV fluid initially. Patient was also treated with Protonix and Librax. Patient's diet was later advance to full which she tolerated. Patient will be discharged home and is to follow-up with her primary care physician and GI. The dictated discharge time 32 minutes. Disposition: DISCHARGED TO HOME OR SELFCARE Time spent for discharge: 32 - Discharge Diagnoses (1) Gastroparesis Status: Acute (2) GERD (gastroesophageal reflux disease) Status: Chronic Qualifiers: Esophagitis presence: E Core Measure Documentation - Palliative Care Palliative Care/ Comfort Measures: Not Applicable - Core Measures Any of the following diagnoses?: none Exam - Constitutional Vitals: Temp Pulse Resp BP Pulse Ox 98.6 F 87 16 110/66 100 09/17/16 07:10 09/17/16 07:10 09/17/16 07:10 09/17/16 07:10 09/17/16 07:10 General appearance: Present: no acute distress, well-nourished - EENT Eyes: Present: PERRL ENT: hearing intact, clear oral mucosa - Neck Neck: Present: supple, normal ROM - Respiratory Respiratory effort: normal Respiratory: bilateral: CTA - Cardiovascular Heart Sounds: Present: S1 & S2. Absent: rub, click - Extremities Extremities: pulses symmetrical, No edema Peripheral Pulses: within normal limits - Abdominal General gastrointestinal: Present: soft, non-tender, non-distended, normal bowel sounds Female genitourinary: Present: normal - Integumentary Integumentary: Present: clear, warm, dry - Musculoskeletal Musculoskeletal: gait normal, strength equal bilaterally - Psychiatric Psychiatric: appropriate mood/affect, intact judgment & insight - Neurologic Neurologic: CNII-XII intact, moves all extremities Plan Activity: no restrictions Weight Bearing Status: Full Weight Bearing Diet: regular Follow up with: PRIMARY CARE, [Primary Care Provider] - 3-5 Days Prescriptions: chlordiazePOXIDE/CLIDINIUM [Librax 5-2.5 mg] 1 cap PO ACHS #120 capsule Pantoprazole [Protonix TAB] 40 mg PO QDAY #30 tablet
[2016-09-17] MEDS: ZOFRAN IV PRN (14:43)
== END 2016-09-17 15:00 | disposition home or self-care (01) | DRG 74 ==
LOC: ED 04:49 → 3A 11:47
PROVIDERS: ADMIT Family Medicine; ATTEND Hospitalist
PROC: 0DJ08ZZ Inspection of Upper Intestinal Tract, Via Natural or Artificial Opening Endoscopic (ICD-10-PCS; principal; 2016-09-16)
DX: E11.43 Type 2 diabetes mellitus with diabetic autonomic (poly)neuropathy (principal); N39.0 Urinary tract infection, site not specified; E11.65 Type 2 diabetes mellitus with hyperglycemia; E87.6 Hypokalemia; K21.9 Gastro-esophageal reflux disease without esophagitis; K31.84 Gastroparesis; Z88.8 Allergy status to other drugs, medicaments and biological substances; Z87.440 Personal history of urinary (tract) infections; Z98.51 Tubal ligation status; Z79.4 Long term (current) use of insulin
CPT/HCPCS: 36415; 80048; 80053; 80061; 81001; 81025; 82962; 83036; 83690; 83735; 84100; 85025; 85027; 87086; 93005; 93010; 96361; 96374; 96375; 96376; C9113; J1956; J2060; J2270; J2405; J2704; J3480; J7030

== ENCOUNTER 2018-04-28 18:36 | Inpatient (IN) | payer OTHER ==
[2018-04-28] MEDS ORDERED: NACL 0.9% 1000 ML 1,000 ML IV ONE (18:45)
[2018-04-28 19:15] LABS: Bilirubin,Urine NEG (Negative); Blood,Urine LG (Negative); Color,Urine Yellow (Yellow); Mucus,Urine 3+ /HPF; Urobilinogen,Urine < 2.0 mg/dL (<2.0)
[2018-04-28 19:30] LABS: Basophils % (Auto) 0.3 % (0.0-1.8); Eosinophils % (Auto) 0.1 % (0.0-4.3); Hematocrit 37.1 % (30.3-42.9); Hemoglobin 12.9 gm/dl (10.1-14.3); Lymphocytes # (Auto) 1.5 K/mm3 (1.2-5.4); Lymphocytes % (Auto) 13.1 % (13.4-35.0); Mean Corpuscular HGB Conc 35 % (30-34); Mean Corpuscular Hemoglobin 29 pg (28-32); Mean Corpuscular Volume 82 fl (79-97); Platelet Count 378 K/mm3 (140-440); Red Blood Count 4.53 M/mm3 (3.65-5.03); Red Cell Distribution Width 12.6 % (13.2-15.2)
[2018-04-28 19:54] LABS: Alanine Aminotransferase 14 units/L (7-56); Albumin 4.9 g/dL (3.9-5); BUN/Creatinine Ratio 28; Blood Urea Nitrogen 17 mg/dL (7-17); Calcium 9.9 mg/dL (8.4-10.2); Hemolysis Index 21; Lipase 17 units/L (13-60)
--- NOTE | 2018-04-28 20:03 | Emergency Department Report ---
ED Abdominal Pain HPI - General Chief Complaint: Abdominal Pain Stated Complaint: CHEST PAIN,VOMITING Time Seen by Provider: 04/28/18 19:58 Source: patient Mode of arrival: Ambulatory Limitations: No Limitations - History of Present Illness Initial Comments: Patient is a 37-year-old female presents emergency room with complaints of epigastric pain and nausea, vomiting, diarrhea. This STARTED about 2 days ago. Patient denies chest pain shortness of breath. Patient denies fever and chills. Patient denies vaginal bleeding and discharge. Patient denies dysuria. Patient states she has a long history of gastritis and acid reflux to get so bad it causes her to have flareups and bouts of nausea vomiting. Patient states she is currently seeing a sofa inspector for this. Patient has also had multiple CTs and endoscopy's. MD Complaint: abdominal pain -: Sudden Location: epigastric Radiation: none Migration to: no migration Severity: severe Severity scale (0 -10): 10 Quality: stabbing, burning Consistency: constant Improves With: rest Worsens With: eating, vomiting, movement, rest Associated Symptoms: nausea, vomiting, diarrhea. denies: fever, chills, constipation, dysuria, hematemesis, hematochezia, melena, hematuria, anorexia, syncope - Related Data LMP (females 10-50): this week Home Medications Medication Instructions Recorded Confirmed Last Taken Doxycycline [Vibramycin CAP] 100 mg PO Q12HR 09/13/16 09/13/16 09/12/16 Previous Rx's Medication Instructions Recorded Last Taken Type Pantoprazole [Protonix TAB] 40 mg PO QDAY #30 tablet 09/17/16 Unknown Rx chlordiazePOXIDE/CLIDINIUM [Librax 1 cap PO ACHS #120 capsule 09/17/16 Unknown Rx 5-2.5 mg] Allergies Allergy/AdvReac Type Severity Reaction Status Date / Time metoclopramide HCl AdvReac Mild Unknown Verified 04/11/16 09:25 [From [facility]] ED Review of Systems ROS: Stated complaint: CHEST PAIN,VOMITING Other details as noted in HPI Constitutional: denies: chills, fever Eyes: denies: eye pain, eye discharge, vision change ENT: denies: ear pain, throat pain Respiratory: denies: cough, shortness of breath, wheezing Cardiovascular: denies: chest pain, palpitations Endocrine: no symptoms reported Gastrointestinal: abdominal pain, nausea, vomiting, diarrhea Genitourinary: denies: urgency, dysuria, discharge Musculoskeletal: denies: back pain, joint swelling, arthralgia Skin: denies: rash, lesions Neurological: denies: headache, weakness, paresthesias Psychiatric: denies: anxiety, depression Hematological/Lymphatic: denies: easy bleeding, easy bruising ED Past Medical Hx - Past Medical History Previous Medical History?: Yes Hx Hypertension: No Hx Congestive Heart Failure: No Hx Diabetes: No Hx Deep Vein Thrombosis: No Hx GERD: Yes Hx Liver Disease: No Hx Renal Disease: Yes (UTI) Hx Sickle Cell Disease: No Hx Headaches / Migraines: Yes Hx Seizures: No Hx Kidney Stones: Yes Hx Asthma: No Hx COPD: No Hx HIV: No Additional medical history: GASTROPARESIS - Surgical History Past Surgical History?: Yes Hx Cholecystectomy: Yes Additional Surgical History: x 3 , left ovary removed - Family History Family history: hypertension - Social History Smoking Status: Never Smoker Substance Use Type: None - Medications Home Medications: Home Medications Medication Instructions Recorded Confirmed Last Taken Type Doxycycline [Vibramycin CAP] 100 mg PO Q12HR 09/13/16 09/13/16 09/12/16 History Pantoprazole [Protonix TAB] 40 mg PO QDAY #30 tablet 09/17/16 Unknown Rx chlordiazePOXIDE/CLIDINIUM [Librax 1 cap PO ACHS #120 capsule 09/17/16 Unknown Rx 5-2.5 mg] ED Physical Exam - General Limitations: No Limitations General appearance: alert, in no apparent distress - Head Head exam: Present: atraumatic, normocephalic - Eye Eye exam: Present: normal appearance - ENT ENT exam: Present: mucous membranes moist - Neck Neck exam: Present: normal inspection - Respiratory Respiratory exam: Present: normal lung sounds bilaterally. Absent: respiratory distress - Cardiovascular Cardiovascular Exam: Present: regular rate, normal rhythm. Absent: systolic murmur, diastolic murmur, rubs, gallop - GI/Abdominal GI/Abdominal exam: Present: soft, tenderness (epigastric tenderness), normal bowel sounds - Extremities Exam Extremities exam: Present: normal inspection - Back Exam Back exam: Present: normal inspection - Neurological Exam Neurological exam: Present: alert, oriented X3 - Psychiatric Psychiatric exam: Present: normal affect, normal mood - Skin Skin exam: Present: warm, dry, intact, normal color. Absent: rash ED Course Vital Signs 10/03/18 10/03/18 10/03/18 18:43 19:49 20:00 Temperature 99.0 F Pulse Rate 87 74 69 Respiratory 18 18 7 L Rate Blood Pressure 127/79 108/75 O2 Sat by Pulse 98 99 Oximetry 04/28/18 04/28/18 04/28/18 20:16 20:30 20:36 Temperature Pulse Rate 70 72 Respiratory 8 L 13 16 Rate Blood Pressure 108/75 108/75 O2 Sat by Pulse 100 99 Oximetry 04/28/18 04/28/18 04/28/18 20:46 21:18 21:30 Temperature Pulse Rate 80 73 87 Respiratory 10 L 13 12 Rate Blood Pressure 103/66 81/49 90/50 O2 Sat by Pulse 96 100 100 Oximetry 04/28/18 04/28/18 04/28/18 21:46 22:00 22:16 Temperature Pulse Rate 78 70 70 Respiratory 13 13 11 L Rate Blood Pressure 90/50 103/66 90/50 O2 Sat by Pulse 99 99 98 Oximetry 04/28/18 04/28/18 04/28/18 22:30 22:46 23:00 Temperature Pulse Rate 77 71 65 Respiratory 11 L 10 L 10 L Rate Blood Pressure 90/50 90/50 O2 Sat by Pulse 100 98 99 Oximetry 04/28/18 04/28/18 04/28/18 23:16 23:30 23:46 Temperature Pulse Rate 70 63 64 Respiratory 11 L 9 L 9 L Rate Blood Pressure 88/43 88/43 88/43 O2 Sat by Pulse 98 98 99 Oximetry 04/29/18 04/29/18 04/29/18 00:00 00:16 00:30 Temperature Pulse Rate 73 62 78 Respiratory 11 L 10 L 11 L Rate Blood Pressure 85/56 85/56 88/64 O2 Sat by Pulse 100 100 100 Oximetry 04/29/18 04/29/18 00:46 01:10 Temperature Pulse Rate 68 73 Respiratory 10 L Rate Blood Pressure 85/56 O2 Sat by Pulse 100 Oximetry - Reevaluation(s) Reevaluation #1: Patient is still having nausea and vomiting. Patient still having uncontrolled severe abdominal pain. Patient has required multiple medications. Patient has not been able tolerate Maalox to nausea. CT dated for intra-abdominal pathology. Discussed plan of care with patient. We will contact [facility] for admission approval or transfer 04/28/18 22:54 Since the patient has required so many medications and patient is still having nausea and vomiting, we will admit patient to hospitalist service. Patient agrees with plan of care and admission. 04/28/18 23:20 - Consultations Consultation #1: [facility] consulted for possible admission or transfer. dr larkin wants her to be admitted here. 04/28/18 23:16 We'll consult our hospitalist here for admission. 04/28/18 23:19 Consultation #2: [facility] was consulted for admission. Hospitalist to admit patient and assume care. Dr. Malik given full report 04/28/18 23:25 ED Medical Decision Making - Lab Data Result diagrams: 04/28/18 18:55 04/28/18 18:55 - Radiology Data Radiology results: report reviewed, image reviewed FINAL REPORT EXAM: CT ABDOMEN PELVIS WO/W CON HISTORY: abd pain. hematuria TECHNIQUE: Noncontrast axial helical imaging was performed through the abdomen and pelvis. Following IV administration of 100 cc of Omnipaque 300 axial helical imaging was performed through the abdomen and pelvis with sagittal and coronal reformatted images obtained. The additional delayed axial helical imaging was performed through the abdomen and pelvis. FINDINGS: The lung bases are without infiltrate, pneumothorax or pleural fluid collection. The heart is normal size. The liver, spleen, pancreas and adrenal glands are unremarkable in appearance. The gallbladder is absent with surgical clips in the gallbladder fossa. There are small nonobstructing stones in the renal pelvis bilaterally. The kidneys are otherwise unremarkable. The bowel is normal caliber. The appendix is normal caliber. There is no evidence of pneumoperitoneum or free fluid. The abdominal aorta is normal caliber. There is no evidence of pathologic intra-abdominal adenopathy by CT size criteria. The uterus and adnexal are notable for 2 cystic-appearing structures in the right adnexa. The larger one measures approximately 6 centimeter x 3.6 centimeter x 5.2 centimeters. The smaller one measures approximately 2 centimeters x 2.6 centimeters x 2.7 centimeters in size. These are most likely ovarian in origin. The bony structures are unremarkable in appearance. IMPRESSION: 1. Two cystic appearing structures in the region the right adnexal that are most likely ovarian in origin. Pelvic ultrasound may be helpful for further evaluation of this finding. 2. No other evidence of an acute intra-abdominal process. 3. Small nonobstructing stones in the renal pelvis bilaterally. No evidence of hydronephrosis. 4. Status post cholecystectomy. Transcribed By: ED Dictated By: WILBERT ARAYA MD Electronically Authenticated By: WILBERT ARAYA MD Signed Date/Time: 04/28/18 3311 - Medical Decision Making She has 37-year-old female presents to emergency room with severe abdominal pain and nausea vomiting. Patient has a long history of gastritis and gastroparesis. Patient is finding consistent with gastritis and gastroparesis. Patient is also having intractable nausea and vomiting and abdominal pain. Patient was admitted to the hospitalist service for further evaluation treatment. Patient agrees with plan of care. All results with patient. CT scan was unremarkable for abdominal pathologies. - Differential Diagnosis abd pain. n/v gastritis. Gastroparesis. gerd. intract n/v/pain. Critical Care Time: Yes Critical care attestation.: If time is entered above; I have spent that time in minutes in the direct care of this critically ill patient, excluding procedure time. Critical Care Time: 35 minutes for cc time. ED Disposition Clinical Impression: Gastroparesis, Intractable abdominal pain Hematuria Qualifiers: Hematuria type: unspecified type Qualified Code(s): R31.9 - Hematuria, unspecified Abdominal pain Qualifiers: Abdominal location: epigastric Qualified Code(s): R10.13 - Epigastric pain Gastritis Qualifiers: Gastritis type: unspecified gastritis Chronicity: acute Gastritis bleeding: without bleeding Qualified Code(s): K29.00 - Acute gastritis without bleeding Nausea & vomiting Qualifiers: Vomiting type: unspecified Vomiting Intractability: intractable Qualified Code( s): R11.2 - Nausea with vomiting, unspecified Disposition: DC-09 OP ADMIT IP TO THIS HOSP Is pt being admited?: Yes Does the pt Need Aspirin: No Condition: Critical Time of Disposition: 23:18
[2018-04-28] MEDS ORDERED: ZOFRAN IV ONE ×2 (20:22→22:57)
[2018-04-28] MEDS ORDERED: DILAUDID IV ONE ×2 (20:22→22:56)
[2018-04-28] MEDS ORDERED: PEPCID IV ONE (21:37)
[2018-04-28] MEDS ORDERED: ALUM-MAG HYDROX-SIMETH 200-200-20MG/5ML PO ONE (21:37)
--- NOTE | 2018-04-28 21:46 | Cat Scan Report ---
FINAL REPORT EXAM: CT ABDOMEN PELVIS WO/W CON HISTORY: abd pain. hematuria TECHNIQUE: Noncontrast axial helical imaging was performed through the abdomen and pelvis. Following IV administration of 100 cc of Omnipaque 300 axial helical imaging was performed through the abdomen and pelvis with sagittal and coronal reformatted images obtained. The additional delayed axial helical imaging was performed through the abdomen and pelvis. FINDINGS: The lung bases are without infiltrate, pneumothorax or pleural fluid collection. The heart is normal size. The liver, spleen, pancreas and adrenal glands are unremarkable in appearance. The gallbladder is absent with surgical clips in the gallbladder fossa. There are small nonobstructing stones in the renal pelvis bilaterally. The kidneys are otherwise unremarkable. The bowel is normal caliber. The appendix is normal caliber. There is no evidence of pneumoperitoneum or free fluid. The abdominal aorta is normal caliber. There is no evidence of pathologic intra-abdominal adenopathy by CT size criteria. The uterus and adnexal are notable for 2 cystic-appearing structures in the right adnexa. The larger one measures approximately 6 centimeter x 3.6 centimeter x 5.2 centimeters. The smaller one measures approximately 2 centimeters x 2.6 centimeters x 2.7 centimeters in size. These are most likely ovarian in origin. The bony structures are unremarkable in appearance. IMPRESSION: 1. Two cystic appearing structures in the region the right adnexal that are most likely ovarian in origin. Pelvic ultrasound may be helpful for further evaluation of this finding. 2. No other evidence of an acute intra-abdominal process. 3. Small nonobstructing stones in the renal pelvis bilaterally. No evidence of hydronephrosis. 4. Status post cholecystectomy.
[2018-04-29] MEDS ORDERED: NACL 0.9% 1000 ML 2,000 ML ONE (00:04)
[2018-04-29] MEDS ORDERED: TYLENOL PO PRN ×2 (00:06→00:10)
[2018-04-29] MEDS ORDERED: SODIUM CHLORIDE FLUSH SYRINGE 10 ML IV PRN (00:06)
[2018-04-29] MEDS ORDERED: ZOFRAN IV PRN ×2 (00:06→00:10)
[2018-04-29] MEDS ORDERED: NACL 0.9% 1000 ML 1,000 ML IV ONE (00:09)
[2018-04-29] MEDS ORDERED: REGLAN IV PRN (00:10)
--- NOTE | 2018-04-29 00:36 | History and Physical Report ---
<RENE SCHRADER - Last Filed: 04/29/18 00:20> History of Present Illness Date of examination: 04/28/18 Date of admission: 04/28/18 23:33 Chief complaint: Epigastric abdominal pain, n/v/d x 2 days History of present illness: Pt is a 37 y.o. female with PMHx of GERD, gastroparisis, Renal stones, migraine headaches who presents to the ER with complaints of epigastric pain, nausea, vomiting and diarrhea for 2 days. Pt states that she has been having the same recurrent symptoms for 16 years, she states that she sees a GI doctor at [facility] and had several GI work up including endoscopy and CT scan of the abdomen. Pt states that the pain is constant, located in the epigastric area associated with profuse vomiting and diarrhea, she cannot keep any food or fluid down since the symptoms stated, denies radiation of the pain. Pt reports, that she is unable to manage her symptoms at home and usually end up in the hospital for treatment with IV medications, because she cannot tolerate any medications by mouth. Patient denies any stool discoloration, denies blood in the stool, denies any ill-contact, denies any recent travelling , denies cough, denies SOB, denies chest pain, denies fever, denies chills, denies urinary symptoms. In the ER, she had a CT scan of the abdomen that shows no evidence of pathologic intra-abdominal adenopathy. Pt was initially treated in the ER, she is admitted for further evaluation of her symptoms. Past History Past Medical History: diabetes, GERD, migraines Past Surgical History: cholecystectomy, (x3), Other (left ovarie removal) Social history: lives with family Family history: other (GERD father) Medications and Allergies Allergies Allergy/AdvReac Type Severity Reaction Status Date / Time metoclopramide HCl AdvReac Mild Unknown Verified 04/11/16 09:25 [From [facility]] Home Medications Medication Instructions Recorded Confirmed Last Taken Type Ondansetron [Zofran ODT TAB] 8 mg PO Q8HR PRN #90 tab.rapdis 05/01/18 Unknown Rx Pantoprazole [Protonix TAB] 40 mg PO BID #60 tablet 05/01/18 Unknown Rx Promethazine [Phenergan SUPPOS] 25 mg SC Q6H PRN #30 supp.rect 05/01/18 Unknown Rx Active Meds: Active Medications Acetaminophen (Tylenol) 650 mg PO Q4H PRN PRN Reason: Pain MILD(1-3)/Fever >100.5/GONZALEZ Acetaminophen (Tylenol) 650 mg PO Q4H PRN PRN Reason: Pain MILD(1-3)/Fever >100.5/GONZALEZ Enoxaparin Sodium (Lovenox) 30 mg SUB-Q QDAY KENNY Sodium Chloride (Nacl 0.9% 1000 Ml) 1,000 mls @ 999 mls/hr IV BOLUS ONE Stop: 04/29/18 01:09 Sodium Chloride (Nacl 0.9% 1000 Ml) 1,000 mls @ 150 mls/hr IV DIRECT KENNY Metoclopramide HCl (Reglan) 10 mg IV Q6H PRN PRN Reason: Nausea And Vomiting Morphine Sulfate (Morphine) 1 mg IV Q4H PRN PRN Reason: Pain, Moderate (4-6) Ondansetron HCl (Zofran) 4 mg IV Q8H PRN PRN Reason: Nausea And Vomiting Ondansetron HCl (Zofran) 4 mg IV Q8H PRN PRN Reason: Nausea And Vomiting Sodium Chloride (Sodium Chloride Flush Syringe 10 Ml) 10 ml IV BID KENNY Sodium Chloride (Sodium Chloride Flush Syringe 10 Ml) 10 ml IV PRN PRN PRN Reason: LINE FLUSH Sodium Chloride (Sodium Chloride Flush Syringe 10 Ml) 10 ml IV BID [facility] Review of Systems Gastrointestinal: abdominal pain, nausea, vomiting, diarrhea, loss of appetite Neurological: headaches, migraines Exam - Constitutional Vitals: Temp Pulse Resp BP Pulse Ox 99.0 F 63 9 L 88/43 98 04/28/18 18:43 04/28/18 23:30 04/28/18 23:30 04/28/18 23:30 04/28/18 23:30 General appearance: Present: mild distress - EENT Eyes: Present: EOM intact ENT: hearing intact - Neck Neck: Present: normal ROM - Respiratory Respiratory effort: normal Respiratory: bilateral: CTA - Cardiovascular Rhythm: regular - Extremities Extremities: pulses intact, pulses symmetrical, No edema Peripheral Pulses: within normal limits - Abdominal General gastrointestinal: Present: soft, tender (epigatric area) - Integumentary Integumentary: Present: clear, warm, dry, normal turgor - Musculoskeletal Musculoskeletal: strength equal bilaterally - Psychiatric Psychiatric: cooperative - Neurologic Neurologic: moves all extremities Results - Labs CBC & Chem 7: 04/28/18 18:55 04/28/18 18:55 Labs: Laboratory Last Values WBC 11.6 K/mm3 (4.5-11.0) H 04/28/18 18:55 RBC 4.53 M/mm3 (3.65-5.03) 04/28/18 18:55 Hgb 12.9 gm/dl (10.1-14.3) 04/28/18 18:55 Hct 37.1 % (30.3-42.9) 04/28/18 18:55 MCV 82 fl (79-97) 04/28/18 18:55 MCH 29 pg (28-32) 04/28/18 18:55 MCHC 35 % (30-34) H 04/28/18 18:55 RDW 12.6 % (13.2-15.2) L 04/28/18 18:55 Plt Count 378 K/mm3 (140-440) 04/28/18 18:55 Lymph % (Auto) 13.1 % (13.4-35.0) L 04/28/18 18:55 [place] % (Auto) 9.0 % (0.0-7.3) H 04/28/18 18:55 Eos % (Auto) 0.1 % (0.0-4.3) 04/28/18 18:55 Baso % (Auto) 0.3 % (0.0-1.8) 04/28/18 18:55 Lymph # 1.5 K/mm3 (1.2-5.4) 04/28/18 18:55 [place] # 1.0 K/mm3 (0.0-0.8) H 04/28/18 18:55 Eos # 0.0 K/mm3 (0.0-0.4) 04/28/18 18:55 Baso # 0.0 K/mm3 (0.0-0.1) 04/28/18 18:55 Seg Neutrophils % 77.5 % (40.0-70.0) H 04/28/18 18:55 Seg Neutrophils # 9.0 K/mm3 (1.8-7.7) H 04/28/18 18:55 Sodium 138 mmol/L (137-145) 04/28/18 18:55 Potassium 3.7 mmol/L (3.6-5.0) 04/28/18 18:55 Chloride 99.6 mmol/L (98-107) 04/28/18 18:55 Carbon Dioxide 25 mmol/L (22-30) 04/28/18 18:55 Anion Gap 17 mmol/L 04/28/18 18:55 BUN 17 mg/dL (7-17) 04/28/18 18:55 Creatinine 0.6 mg/dL (0.7-1.2) L 04/28/18 18:55 Estimated GFR > 60 ml/min 04/28/18 18:55 BUN/Creatinine Ratio 28 % 04/28/18 18:55 Glucose 117 mg/dL (65-100) H 04/28/18 18:55 Lactic Acid 1.20 mmol/L (0.7-2.0) 04/28/18 20:28 Calcium 9.9 mg/dL (8.4-10.2) 04/28/18 18:55 Total Bilirubin 0.90 mg/dL (0.1-1.2) 04/28/18 18:55 AST 22 units/L (5-40) 04/28/18 18:55 ALT 14 units/L (7-56) 04/28/18 18:55 Alkaline Phosphatase 80 units/L (35-129) 04/28/18 18:55 Total Protein 9.1 g/dL (6.3-8.2) H 04/28/18 18:55 Albumin 4.9 g/dL (3.9-5) 04/28/18 18:55 Albumin/Globulin Ratio 1.2 % 04/28/18 18:55 Lipase 17 units/L (13-60) 04/28/18 18:55 HCG, Qual Negative (Negative) 04/28/18 18:55 Urine Color Yellow (Yellow) 04/28/18 18:55 Urine Turbidity Slightly-cloudy (Clear) 04/28/18 18:55 Urine pH 5.0 (5.0-7.0) 04/28/18 18:55 Ur Specific Kim 1.027 (1.003-1.030) 04/28/18 18:55 Urine Protein 100 mg/dl mg/dL (Negative) 04/28/18 18:55 Urine Glucose (UA) Neg mg/dL (Negative) 04/28/18 18:55 Urine Ketones 20 mg/dL (Negative) 04/28/18 18:55 Urine Blood Lg (Negative) 04/28/18 18:55 Urine Nitrite Neg (Negative) 04/28/18 18:55 Urine Bilirubin Neg (Negative) 04/28/18 18:55 Urine Urobilinogen < 2.0 mg/dL (<2.0) 04/28/18 18:55 Ur Leukocyte Esterase Neg (Negative) 04/28/18 18:55 Urine WBC (Auto) 6.0 /HPF (0.0-6.0) 04/28/18 18:55 Urine RBC (Auto) 112.0 /HPF (0.0-6.0) 04/28/18 18:55 U Epithel Cells (Auto) 5.0 /HPF (0-13.0) 04/28/18 18:55 Urine Mucus 3+ /HPF 04/28/18 18:55 Assessment and Plan Assessment and plan: 37 year old female with h/o gastroparesis, no DM history presents with recurrent abdominal pain, N/V/D. 1. Abdominal pain (etiology unclear) 2. N/V/D (unknown etiology, CT abdomen neg) 3. Hypotension 4. H/o gastroparesis 5. H/o GERD 6. Mild leukocytosis 7. H/o Renal stones Plan: Admit to med/tele Monitor BP/VS 250 NS bolus x 1 then IVF NS @ 15-ml /hr Stool culture Zofran PRN for nausea Morphine PRN for pain Resume home meds (Protonix, DVT prophylaxis with Lovenox Pt condition an plan of care was discussed with attending Advance Directives: Yes VTE prophylaxis?: Chemical Plan of care discussed with patient/family: Yes <JENIFFER CARRILLO - Last Filed: 05/02/18 22:58> History of Present Illness Date of admission: 04/28/18 23:33 Medications and Allergies Active Meds: Active Medications Acetaminophen (Tylenol) 650 mg PO Q4H PRN PRN Reason: Pain MILD(1-3)/Fever >100.5/GONZALEZ Enoxaparin Sodium (Lovenox) 40 mg SUB-Q QDAY@1000 KENNY Sodium Chloride (Nacl 0.9% 1000 Ml) 1,000 mls @ 150 mls/hr IV DIRECT KENNY Last Admin: 04/29/18 01:40 Dose: 150 mls/hr Morphine Sulfate (Morphine) 1 mg IV Q4H PRN PRN Reason: Pain, Moderate (4-6) Last Admin: 04/29/18 05:34 Dose: 1 mg Ondansetron HCl (Zofran) 4 mg IV Q4H PRN PRN Reason: Nausea And Vomiting Last Admin: 04/29/18 05:34 Dose: 4 mg Pantoprazole Sodium (Protonix) 40 mg IV QDAY KENNY Sodium Chloride (Sodium Chloride Flush Syringe 10 Ml) 10 ml IV BID KENNY Sodium Chloride (Sodium Chloride Flush Syringe 10 Ml) 10 ml IV PRN PRN PRN Reason: LINE FLUSH Exam - Constitutional Vitals: Temp Pulse Resp BP Pulse Ox 99.0 F 73 10 L 85/56 100 04/28/18 18:43 04/29/18 01:10 04/29/18 00:46 04/29/18 00:46 04/29/18 00:46 Results - Labs CBC & Chem 7: 04/28/18 18:55 04/29/18 04:51 Labs: Laboratory Last Values WBC 11.6 K/mm3 (4.5-11.0) H 04/28/18 18:55 RBC 4.53 M/mm3 (3.65-5.03) 04/28/18 18:55 Hgb 12.9 gm/dl (10.1-14.3) 04/28/18 18:55 Hct 37.1 % (30.3-42.9) 04/28/18 18:55 MCV 82 fl (79-97) 04/28/18 18:55 MCH 29 pg (28-32) 04/28/18 18:55 MCHC 35 % (30-34) H 04/28/18 18:55 RDW 12.6 % (13.2-15.2) L 04/28/18 18:55 Plt Count 378 K/mm3 (140-440) 04/28/18 18:55 Lymph % (Auto) 13.1 % (13.4-35.0) L 04/28/18 18:55 [place] % (Auto) 9.0 % (0.0-7.3) H 04/28/18 18:55 Eos % (Auto) 0.1 % (0.0-4.3) 04/28/18 18:55 Baso % (Auto) 0.3 % (0.0-1.8) 04/28/18 18:55 Lymph # 1.5 K/mm3 (1.2-5.4) 04/28/18 18:55 [place] # 1.0 K/mm3 (0.0-0.8) H 04/28/18 18:55 Eos # 0.0 K/mm3 (0.0-0.4) 04/28/18 18:55 Baso # 0.0 K/mm3 (0.0-0.1) 04/28/18 18:55 Seg Neutrophils % 77.5 % (40.0-70.0) H 04/28/18 18:55 Seg Neutrophils # 9.0 K/mm3 (1.8-7.7) H 04/28/18 18:55 Sodium 138 mmol/L (137-145) 04/28/18 18:55 Potassium 3.7 mmol/L (3.6-5.0) 04/28/18 18:55 Chloride 99.6 mmol/L (98-107) 04/28/18 18:55 Carbon Dioxide 25 mmol/L (22-30) 04/28/18 18:55 Anion Gap 17 mmol/L 04/28/18 18:55 BUN 17 mg/dL (7-17) 04/28/18 18:55 Creatinine 0.6 mg/dL (0.7-1.2) L 04/28/18 18:55 Estimated GFR > 60 ml/min 04/28/18 18:55 BUN/Creatinine Ratio 28 % 04/28/18 18:55 Glucose 117 mg/dL (65-100) H 04/28/18 18:55 Lactic Acid 1.20 mmol/L (0.7-2.0) 04/28/18 20:28 Calcium 9.9 mg/dL (8.4-10.2) 04/28/18 18:55 Total Bilirubin 0.90 mg/dL (0.1-1.2) 04/28/18 18:55 AST 22 units/L (5-40) 04/28/18 18:55 ALT 14 units/L (7-56) 04/28/18 18:55 Alkaline Phosphatase 80 units/L (35-129) 04/28/18 18:55 Total Protein 9.1 g/dL (6.3-8.2) H 04/28/18 18:55 Albumin 4.9 g/dL (3.9-5) 04/28/18 18:55 Albumin/Globulin Ratio 1.2 % 04/28/18 18: Lipase 17 units/L (13-60) 04/28/18 18:55 HCG, Qual Negative (Negative) 04/28/18 18:55 Urine Color Yellow (Yellow) 04/28/18 18:55 Urine Turbidity Slightly-cloudy (Clear) 04/28/18 18:55 Urine pH 5.0 (5.0-7.0) 04/28/18 18:55 Ur Specific Kim 1.027 (1.003-1.030) 04/28/18 18:55 Urine Protein 100 mg/dl mg/dL (Negative) 04/28/18 18:55 Urine Glucose (UA) Neg mg/dL (Negative) 04/28/18 18:55 Urine Ketones 20 mg/dL (Negative) 04/28/18 18:55 Urine Blood Lg (Negative) 04/28/18 18:55 Urine Nitrite Neg (Negative) 04/28/18 18:55 Urine Bilirubin Neg (Negative) 04/28/18 18:55 Urine Urobilinogen < 2.0 mg/dL (<2.0) 04/28/18 18:55 Ur Leukocyte Esterase Neg (Negative) 04/28/18 18:55 Urine WBC (Auto) 6.0 /HPF (0.0-6.0) 04/28/18 18:55 Urine RBC (Auto) 112.0 /HPF (0.0-6.0) 04/28/18 18:55 U Epithel Cells (Auto) 5.0 /HPF (0-13.0) 04/28/18 18:55 Urine Mucus 3+ /HPF 04/28/18 18:55 Assessment and Plan Assessment and plan: Patient seen and examined with the nurse practitioner. She is a 37-year-old woman with a history of GERD causing complaining of nausea vomiting diarrhea, unable to tolerate oral intake. She is s/p EGD 1 year ago, old records reviewed. Physical exam is benign, patient's blood pressure usually runs a low. Agree with the above plan of care
[2018-04-29] MEDS: ZOFRAN IV PRN ×3 (01:40→09:23)
[2018-04-29] MEDS: NACL 0.9% 1000 ML 1,000 ML IV SCH ×4 (01:40→23:02)
[2018-04-29] MEDS: MORPHINE IV PRN ×5 (01:45→20:34)
[2018-04-29 06:05] LABS: BUN/Creatinine Ratio 28; Blood Urea Nitrogen 14 mg/dL (7-17); Hemolysis Index 2
[2018-04-29] MEDS ORDERED: LOVENOX SUB-Q SCH (10:00)
[2018-04-29] MEDS ORDERED: SODIUM CHLORIDE FLUSH SYRINGE 10 ML IV SCH (10:00)
[2018-04-29] MEDS: SODIUM CHLORIDE FLUSH SYRINGE 10 ML IV SCH ×2 (10:03→21:56)
[2018-04-29] MEDS: LOVENOX SUB-Q SCH (10:59)
[2018-04-29] MEDS: PROTONIX IV SCH (10:59)
--- NOTE | 2018-04-29 12:52 | Progress Note ---
Assessment and Plan Assessment and plan: 37 year old female with h/o gastroparesis, no DM history presents with recurrent abdominal pain, N/V/D. acute flare of gastroparesis and GERD advance diet avoid narcotics anti-emetics, IVF History Interval history: Review of systems Constitutional: No fevers, no malaise, no joint pains CVS: No chest pain, no orthopnea, no dyspnea on exertion, no pedal edema GI: c/o abdominal pain, nausea is resolving Respiratory: No shortness of breath, no wheezing, no coughing Hospitalist Physical - Physical exam Narrative exam: General.: Appears well, no distress, nontoxic HEENT: Moist mucous membranes, extraocular muscles intact, no lymphadenopathy Neck: supple Cardiac: S1-S2 heard Lungs: clear to auscultation bilaterally Abdomen: soft , nontender, nondistended, bowel sounds positive Extremities: no edema clubbing or cyanosis Skin: no rash or lesions Neurologic: no gross focal deficits Psych: appropriate behavior, appropriate mood, corporative, judgment intact - Constitutional Vitals: Temp Pulse Resp BP Pulse Ox 98.2 F 68 18 138/78 98 04/29/18 08:13 04/29/18 08:13 04/29/18 08:13 04/29/18 08:13 04/29/18 08:13 General appearance: Present: mild distress Results - Labs CBC & Chem 7: 04/28/18 18:55 04/29/18 04:51 Labs: Laboratory Last Values WBC 11.6 K/mm3 (4.5-11.0) H 04/28/18 18:55 RBC 4.53 M/mm3 (3.65-5.03) 04/28/18 18:55 Hgb 12.9 gm/dl (10.1-14.3) 04/28/18 18:55 Hct 37.1 % (30.3-42.9) 04/28/18 18:55 MCV 82 fl (79-97) 04/28/18 18:55 MCH 29 pg (28-32) 04/28/18 18:55 MCHC 35 % (30-34) H 04/28/18 18:55 RDW 12.6 % (13.2-15.2) L 04/28/18 18:55 Plt Count 378 K/mm3 (140-440) 04/28/18 18:55 Lymph % (Auto) 13.1 % (13.4-35.0) L 04/28/18 18:55 [place] % (Auto) 9.0 % (0.0-7.3) H 04/28/18 18:55 Eos % (Auto) 0.1 % (0.0-4.3) 04/28/18 18:55 Baso % (Auto) 0.3 % (0.0-1.8) 04/28/18 18:55 Lymph # 1.5 K/mm3 (1.2-5.4) 04/28/18 18:55 [place] # 1.0 K/mm3 (0.0-0.8) H 04/28/18 18:55 Eos # 0.0 K/mm3 (0.0-0.4) 04/28/18 18:55 Baso # 0.0 K/mm3 (0.0-0.1) 04/28/18 18:55 Seg Neutrophils % 77.5 % (40.0-70.0) H 04/28/18 18:55 Seg Neutrophils # 9.0 K/mm3 (1.8-7.7) H 04/28/18 18:55 Sodium 142 mmol/L (137-145) 04/29/18 04:51 Potassium 3.6 mmol/L (3.6-5.0) 04/29/18 04:51 Chloride 109.6 mmol/L (98-107) H 04/29/18 04:51 Carbon Dioxide 22 mmol/L (22-30) 04/29/18 04:51 Anion Gap 14 mmol/L 04/29/18 04:51 BUN 14 mg/dL (7-17) 04/29/18 04:51 Creatinine 0.5 mg/dL (0.7-1.2) L 04/29/18 04:51 Estimated GFR > 60 ml/min 04/29/18 04:51 BUN/Creatinine Ratio 28 % 04/29/18 04:51 Glucose 91 mg/dL (65-100) 04/29/18 04:51 Lactic Acid 1.20 mmol/L (0.7-2.0) 04/28/18 20:28 Calcium 8.0 mg/dL (8.4-10.2) L D 04/29/18 04:51 Total Bilirubin 0.90 mg/dL (0.1-1.2) 04/28/18 18:55 AST 22 units/L (5-40) 04/28/18 18:55 ALT 14 units/L (7-56) 04/28/18 18:55 Alkaline Phosphatase 80 units/L (35-129) 04/28/18 18:55 Total Protein 9.1 g/dL (6.3-8.2) H 04/28/18 18:55 Albumin 4.9 g/dL (3.9-5) 04/28/18 18:55 Albumin/Globulin Ratio 1.2 % 04/28/18 18:55 Lipase 17 units/L (13-60) 04/28/18 18:55 HCG, Qual Negative (Negative) 04/28/18 18:55 Urine Color Yellow (Yellow) 04/28/18 18:55 Urine Turbidity Slightly-cloudy (Clear) 04/28/18 18:55 Urine pH 5.0 (5.0-7.0) 04/28/18 18:55 Ur Specific [place] 1.027 (1.003-1.030) 04/28/18 18:55 Urine Protein 100 mg/dl mg/dL (Negative) 04/28/18 18:55 Urine Glucose (UA) Neg mg/dL (Negative) 04/28/18 18:55 Urine Ketones 20 mg/dL (Negative) 04/28/18 18:55 Urine Blood Lg (Negative) 04/28/18 18:55 Urine Nitrite Neg (Negative) 04/28/18 18:55 Urine Bilirubin Neg (Negative) 04/28/18 18:55 Urine Urobilinogen < 2.0 mg/dL (<2.0) 04/28/18 18:55 Ur Leukocyte Esterase Neg (Negative) 04/28/18 18:55 Urine WBC (Auto) 6.0 /HPF (0.0-6.0) 04/28/18 18:55 Urine RBC (Auto) 112.0 /HPF (0.0-6.0) 04/28/18 18:55 U Epithel Cells (Auto) 5.0 /HPF (0-13.0) 04/28/18 18:55 Urine Mucus 3+ /HPF 04/28/18 18:55
[2018-04-29] MEDS ORDERED: REGLAN IV SCH (16:30)
[2018-04-29] MEDS: ZOFRAN IV SCH ×2 (17:50→21:56)
[2018-04-30] MEDS: ZOFRAN IV PRN (01:40)
[2018-04-30] MEDS: MORPHINE IV PRN (02:41)
[2018-04-30] MEDS: NACL 0.9% 1000 ML 1,000 ML IV SCH ×3 (06:12→22:12)
[2018-04-30] MEDS: ZOFRAN IV SCH ×4 (08:30→22:09)
[2018-04-30] MEDS ORDERED: PHENERGAN PR PRN (12:13)
--- NOTE | 2018-04-30 12:14 | Progress Note ---
Assessment and Plan Assessment and plan: 37 year old female with h/o gastroparesis, no DM history presents with recurrent abdominal pain, N/V/D. acute flare of gastroparesis and GERD patient adamantly denies having Gastroparesis, claims all her symptoms are from GERD -she did not tolerate Gastric emptying study GI consulted cont PPI advance diet avoid narcotics anti-emetics, IVF History Interval history: Review of systems Constitutional: No fevers, no malaise, no joint pains CVS: No chest pain, no orthopnea, no dyspnea on exertion, no pedal edema GI: c/o abdominal pain, nausea is resolving Respiratory: No shortness of breath, no wheezing, no coughing Hospitalist Physical - Physical exam Narrative exam: General.: Appears well, no distress, nontoxic HEENT: Moist mucous membranes, extraocular muscles intact, no lymphadenopathy Neck: supple Cardiac: S1-S2 heard Lungs: clear to auscultation bilaterally Abdomen: soft , nontender, nondistended, bowel sounds positive Extremities: no edema clubbing or cyanosis Skin: no rash or lesions Neurologic: no gross focal deficits Psych: appropriate behavior, appropriate mood, corporative, judgment intact - Constitutional Vitals: Temp Pulse Resp BP Pulse Ox 98.0 F 64 18 108/75 100 04/30/18 04:31 04/30/18 04:31 04/30/18 10:00 04/30/18 04:30 04/30/18 04:31 General appearance: Present: mild distress Results - Labs CBC & Chem 7: 04/28/18 18:55 04/29/18 04:51 Labs: Laboratory Last Values WBC 11.6 K/mm3 (4.5-11.0) H 04/28/18 18:55 RBC 4.53 M/mm3 (3.65-5.03) 04/28/18 18:55 Hgb 12.9 gm/dl (10.1-14.3) 04/28/18 18:55 Hct 37.1 % (30.3-42.9) 04/28/18 18:55 MCV 82 fl (79-97) 04/28/18 18:55 MCH 29 pg (28-32) 04/28/18 18:55 MCHC 35 % (30-34) H 04/28/18 18:55 RDW 12.6 % (13.2-15.2) L 04/28/18 18:55 Plt Count 378 K/mm3 (140-440) 04/28/18 18:55 Lymph % (Auto) 13.1 % (13.4-35.0) L 04/28/18 18:55 [place] % (Auto) 9.0 % (0.0-7.3) H 04/28/18 18:55 Eos % (Auto) 0.1 % (0.0-4.3) 04/28/18 18:55 Baso % (Auto) 0.3 % (0.0-1.8) 04/28/18 18:55 Lymph # 1.5 K/mm3 (1.2-5.4) 04/28/18 18:55 [place] # 1.0 K/mm3 (0.0-0.8) H 04/28/18 18:55 Eos # 0.0 K/mm3 (0.0-0.4) 04/28/18 18:55 Baso # 0.0 K/mm3 (0.0-0.1) 04/28/18 18:55 Seg Neutrophils % 77.5 % (40.0-70.0) H 04/28/18 18:55 Seg Neutrophils # 9.0 K/mm3 (1.8-7.7) H 04/28/18 18:55 Sodium 142 mmol/L (137-145) 04/29/18 04:51 Potassium 3.6 mmol/L (3.6-5.0) 04/29/18 04:51 Chloride 109.6 mmol/L (98-107) H 04/29/18 04:51 Carbon Dioxide 22 mmol/L (22-30) 04/29/18 04:51 Anion Gap 14 mmol/L 04/29/18 04:51 BUN 14 mg/dL (7-17) 04/29/18 04:51 Creatinine 0.5 mg/dL (0.7-1.2) L 04/29/18 04:51 Estimated GFR > 60 ml/min 04/29/18 04:51 BUN/Creatinine Ratio 28 % 04/29/18 04:51 Glucose 91 mg/dL (65-100) 04/29/18 04:51 Lactic Acid 1.20 mmol/L (0.7-2.0) 04/28/18 20:28 Calcium 8.0 mg/dL (8.4-10.2) L D 04/29/18 04:51 Total Bilirubin 0.90 mg/dL (0.1-1.2) 04/28/18 18:55 AST 22 units/L (5-40) 04/28/18 18:55 ALT 14 units/L (7-56) 04/28/18 18:55 Alkaline Phosphatase 80 units/L (35-129) 04/28/18 18:55 Total Protein 9.1 g/dL (6.3-8.2) H 04/28/18 18:55 Albumin 4.9 g/dL (3.9-5) 04/28/18 18:55 Albumin/Globulin Ratio 1.2 % 04/28/18 18:55 Lipase 17 units/L (13-60) 04/28/18 18:55 HCG, Qual Negative (Negative) 04/28/18 18:55 Urine Color Yellow (Yellow) 04/28/18 18:55 Urine Turbidity Slightly-cloudy (Clear) 04/28/18 18:55 Urine pH 5.0 (5.0-7.0) 04/28/18 18:55 Ur Specific [place] 1.027 (1.003-1.030) 04/28/18 18:55 Urine Protein 100 mg/dl mg/dL (Negative) 04/28/18 18:55 Urine Glucose (UA) Neg mg/dL (Negative) 04/28/18 18:55 Urine Ketones 20 mg/dL (Negative) 04/28/18 18:55 Urine Blood Lg (Negative) 04/28/18 18:55 Urine Nitrite Neg (Negative) 04/28/18 18:55 Urine Bilirubin Neg (Negative) 04/28/18 18:55 Urine Urobilinogen < 2.0 mg/dL (<2.0) 04/28/18 18:55 Ur Leukocyte Esterase Neg (Negative) 04/28/18 18:55 Urine WBC (Auto) 6.0 /HPF (0.0-6.0) 04/28/18 18:55 Urine RBC (Auto) 112.0 /HPF (0.0-6.0) 04/28/18 18:55 U Epithel Cells (Auto) 5.0 /HPF (0-13.0) 04/28/18 18:55 Urine Mucus 3+ /HPF 04/28/18 18:55
[2018-04-30] MEDS: PROTONIX IV SCH (12:18)
[2018-04-30] MEDS: LOVENOX SUB-Q SCH (12:19)
[2018-04-30] MEDS: SODIUM CHLORIDE FLUSH SYRINGE 10 ML IV SCH ×2 (12:20→22:22)
[2018-04-30] MEDS ORDERED: TORADOL IV ONE (18:16)
[2018-04-30] MEDS: TORADOL IV PRN (23:31)
[2018-05-01] MEDS: NACL 0.9% 1000 ML 1,000 ML IV SCH ×2 (04:47→11:03)
[2018-05-01] MEDS: ZOFRAN IV PRN (04:50)
[2018-05-01] MEDS: TORADOL IV PRN (05:42)
[2018-05-01] MEDS: ZOFRAN IV SCH ×2 (07:30→12:09)
[2018-05-01] MEDS: PROTONIX IV SCH (09:35)
[2018-05-01] MEDS: LOVENOX SUB-Q SCH ×2 (09:35→09:49)
[2018-05-01] MEDS: SODIUM CHLORIDE FLUSH SYRINGE 10 ML IV SCH (09:36)
--- NOTE | 2018-05-01 11:54 | Gastroenterology Progress Note ---
Assessment and Plan GI: pt w/ nausea, vomiting now improving - advance deit to soft - PPI bid - no plans scope at this time - if tolerate soft ok to d/c from GI standpoint - will follow for now Subjective Date of service: 05/01/18 Interval history: -pt reprots feeling better today despite some nausea overnight Objective - Constitutional Vitals: Temp Pulse Resp BP Pulse Ox 97.0 F L 60 18 119/75 100 05/01/18 05:52 05/01/18 05:52 05/01/18 06:12 05/01/18 05:52 05/01/18 05:52 General appearance: no acute distress - EENT Eyes: PERRL - Neck Neck: supple - Respiratory Respiratory: bilateral: CTA - Cardiovascular Rhythm: regular Heart Sounds: Present: S1 & S2 - Gastrointestinal General gastrointestinal: Present: soft, non-tender, non-distended - Labs CBC & Chem 7: 04/28/18 18:55 04/29/18 04:51
--- NOTE | 2018-05-01 13:50 | Discharge Summary ---
Providers - Providers Date of Admission: 04/28/18 23:33 Attending physician: CONSUELO RUFFIN MD 04/30/18 12:43 Consult to Physician [CONS] Routine Comment: Consulting Provider: NATALI GUNTER Physician Instructions: Reason For Exam: Intractable nausea and vomiting, claims its GERD Primary care physician: DISPLAY MAKER Hospitalization Condition: Critical Hospital course: 37 year old female with h/o gastroparesis, no DM history presents with recurrent abdominal pain, N/V/D. acute flare of gastroparesis and GERD patient adamantly denies having Gastroparesis, claims all her symptoms are from GERD -she did not tolerate Gastric emptying study GI consulted cont PPI advance diet avoid narcotics anti-emetics, IVF Disposition: - TO HOME OR SELFCARE Time spent for discharge: 33 minutes Core Measure Documentation - Palliative Care Palliative Care/ Comfort Measures: Not Applicable - Core Measures Any of the following diagnoses?: none Exam - Constitutional Vitals: Temp Pulse Resp BP Pulse Ox 97.0 F L 60 18 119/75 100 05/01/18 05:52 05/01/18 05:52 05/01/18 06:12 05/01/18 05:52 05/01/18 05:52 General appearance: Present: no acute distress, well-nourished - EENT Eyes: Present: PERRL ENT: hearing intact, clear oral mucosa - Neck Neck: Present: supple, normal ROM - Respiratory Respiratory effort: normal Respiratory: bilateral: CTA - Cardiovascular Heart Sounds: Present: S1 & S2. Absent: rub, click - Extremities Extremities: pulses symmetrical, No edema Peripheral Pulses: within normal limits - Abdominal General gastrointestinal: Present: soft, non-tender, non-distended, normal bowel sounds Female genitourinary: Present: normal - Integumentary Integumentary: Present: clear, warm, dry - Musculoskeletal Musculoskeletal: gait normal, strength equal bilaterally - Psychiatric Psychiatric: appropriate mood/affect, intact judgment & insight - Neurologic Neurologic: CNII-XII intact, moves all extremities Plan Follow up with: PRIMARY CARE, [Primary Care Provider] - 3-5 Days Prescriptions: Ondansetron [Zofran ODT TAB] 8 mg PO Q8HR PRN #90 tab.rapdis PRN Reason: Nausea Pantoprazole [Protonix TAB] 40 mg PO BID #60 tablet Promethazine [Phenergan SUPPOS] 25 mg [place] Q6H PRN #30 supp.rect PRN Reason: Nausea And Vomiting
--- NOTE | 2018-05-01 13:59 | Consultation ---
Referring Physician: Dr: CONSUELO RUFFIN MD INDICATION: Nausea, vomiting. HISTORY OF PRESENT ILLNESS: The patient is a 37-year-old black female with a history of reflux, renal stones, and migraines, now been seen by GI for nausea, vomiting. The patient reports this has been an ongoing issue for 16 years and has had extensive GI workup. The patient is status post cholecystectomy in the past. The patient reports now 2-3 days of nausea, vomiting with loose stools. She will subsequently came to Emergency Room where CT scan was done, which was otherwise benign. She does report some epigastric pain. She reports worse when she eats. She reports that her symptoms seemed to be improving. This morning, a gastric emptying was attempted, but the patient was unable to tolerate to complete the study. She reports since that time, symptoms seem to be improving today and she actually asked for food this afternoon. She denies any melena or hematemesis. She denies any other specific GI complaints. PAST MEDICAL HISTORY: 1. Diabetes. 2. GERD. 3. Migraine. PAST SURGICAL HISTORY: Status post cholecystectomy and . MEDICATIONS: See chart. ALLERGIES: TO REGLAN. SOCIAL HISTORY: Denies alcohol, tobacco, or IV drug abuse. FAMILY HISTORY: Negative for colon cancer, IBD, or liver disease. REVIEW OF SYSTEMS: GENERAL: Reports weakness. HEENT: No visual complaints or tinnitus. PULMONARY: Reports some mild shortness of breath. No cough. No chest pain. GASTROINTESTINAL: Reports nausea, vomiting, now improving. All points of 13-point review of systems otherwise negative. PHYSICAL EXAMINATION: VITAL SIGNS: Temperature of 98.1, pulse 60, respirations 20, and blood pressure 120/75. GENERAL: Fairly nourished female, in no acute distress. HEENT: Pupils equal, round and reactive. PULMONARY: Rhonchi. CARDIOVASCULAR: Normal S1, S2. ABDOMEN: Positive bowel sounds, soft. SKIN: No obvious rashes. LABORATORY DATA: Pertinent for white count of 11.6, hemoglobin and hematocrit 12.9 and 36.1, platelet count of 378. Chem-7 within normal limits. LFTs are within normal limits. CT scan showed no significant GI pathology. Small renal stones in the pelvis noted. ASSESSMENT AND PLAN: This is a 37-year-old female, now with recurrent nausea, vomiting and loose stool. Possibility of gastroparesis versus functional versus other. The patient reports she is actually now is beginning to feel better. She does not think she wants to start a gastric emptying study at this time. PLAN: 1. PPI daily. 2. Antiemetics as ordered. 3. Continue clear liquid diet, but can advance to soften the morning if continue to improve. 4. No plans for endoscopy at this time. 5. We will follow further recommendation based on progress. [facility]# [id number] [facility]
[2018-05-01 15:14] VITALS: BP 138/78
== END 2018-05-01 16:30 | disposition home or self-care (01) | DRG 392 ==
LOC: ED 18:36 → 3A 23:33 → 4A 04-29 00:29 → 3A 04-29 20:00
PROVIDERS: ADMIT Internal Medicine; ATTEND Internal Medicine
DX: K21.9 Gastro-esophageal reflux disease without esophagitis (principal); K31.84 Gastroparesis; G43.909 Migraine, unspecified, not intractable, without status migrainosus; D72.829 Elevated white blood cell count, unspecified; K29.70 Gastritis, unspecified, without bleeding; Z87.442 Personal history of urinary calculi; Z90.49 Acquired absence of other specified parts of digestive tract; Z83.79 Family history of other diseases of the digestive system; Z88.8 Allergy status to other drugs, medicaments and biological substances; Z82.49 Family history of ischemic heart disease and other diseases of the circulatory system; Z90.721 Acquired absence of ovaries, unilateral
CPT/HCPCS: 36415; 74178; 80048; 80053; 81001; 82140; 83690; 84703; 85025; 87116; 96361; 96374; 96375; C9113; J1170; J1650; J1885; J2270; J2405; J7030; Q9967

== ENCOUNTER 2018-09-01 08:01 | Emergency (ER) | payer OTHER ==
[2018-09-01] MEDS ORDERED: TORADOL IV ONE ×2 (08:49→11:32)
[2018-09-01] MEDS ORDERED: NACL 0.9% 1000 ML 1,000 ML IV ONE (08:49)
[2018-09-01] MEDS ORDERED: ZOFRAN IV ONE (08:50)
--- NOTE | 2018-09-01 08:54 | Emergency Department Report ---
ED Abdominal Pain HPI - General Chief Complaint: Abdominal Pain Stated Complaint: UPPER ABD PAIN Time Seen by Provider: 09/01/18 08:44 Source: patient Mode of arrival: Wheelchair Limitations: No Limitations - History of Present Illness Initial Comments: This is a 37-year-old female with a history of GERD who presents to ED complaining of upper abdominal pain with nausea vomiting times yesterday. Patient states that about 2 days ago she started feeling R acid reflux flareup. Patient's assessed this has happened to her before. Patient states that she can keep any food or liquids down she has to throw up. Patient states she is unable to take her medicines because she has been throwing up. She denies dysuria, vaginal bleed, chest pain, shortness of breath etiology given the unusual foods. MD Complaint: abdominal pain Severity scale (0 -10): 10 - Related Data Previous Rx's Medication Instructions Recorded Last Taken Type Promethazine [Phenergan SUPPOS] 25 mg [place] Q6H PRN #30 supp.rect 05/01/18 Unknown Rx Dicyclomine [Bentyl] 10 mg PO BID #30 capsule 09/01/18 Unknown Rx Ondansetron [Zofran ODT TAB] 8 mg PO Q8HR PRN #90 tab.rapdis 09/01/18 Unknown Rx Pantoprazole [Protonix TAB] 40 mg PO BID #60 tablet 09/01/18 Unknown Rx Allergies Allergy/AdvReac Type Severity Reaction Status Date / Time metoclopramide HCl AdvReac Mild Unknown Verified 04/11/16 09:25 [From [facility]] ED Review of Systems ROS: Stated complaint: UPPER ABD PAIN Other details as noted in HPI Comment: All other systems reviewed and negative ED Past Medical Hx - Past Medical History Hx Hypertension: No Hx Congestive Heart Failure: No Hx Diabetes: No Hx Deep Vein Thrombosis: No Hx GERD: Yes Hx Liver Disease: No Hx Renal Disease: Yes (UTI) Hx Sickle Cell Disease: No Hx Headaches / Migraines: Yes Hx Seizures: No Hx Kidney Stones: Yes Hx Asthma: No Hx COPD: No Hx HIV: No Additional medical history: GASTROPARESIS - Surgical History Hx Cholecystectomy: Yes Additional Surgical History: x 3 , left ovary removed - Social History Smoking Status: Never Smoker Substance Use Type: None - Medications Home Medications: Home Medications Medication Instructions Recorded Confirmed Last Taken Type Promethazine [Phenergan SUPPOS] 25 mg [place] Q6H PRN #30 supp.rect 05/01/18 Unknown Rx Dicyclomine [Bentyl] 10 mg PO BID #30 capsule 09/01/18 Unknown Rx Ondansetron [Zofran ODT TAB] 8 mg PO Q8HR PRN #90 tab.rapdis 09/01/18 Unknown Rx Pantoprazole [Protonix TAB] 40 mg PO BID #60 tablet 09/01/18 Unknown Rx ED Physical Exam - General Limitations: No Limitations General appearance: alert, in no apparent distress - Head Head exam: Present: atraumatic, normocephalic - Eye Eye exam: Present: normal appearance - ENT ENT exam: Present: mucous membranes moist - Neck Neck exam: Present: normal inspection - Respiratory Respiratory exam: Present: normal lung sounds bilaterally. Absent: respiratory distress - Cardiovascular Cardiovascular Exam: Present: regular rate, normal rhythm. Absent: systolic murmur, diastolic murmur, rubs, gallop - GI/Abdominal GI/Abdominal exam: Present: soft, normal bowel sounds - Extremities Exam Extremities exam: Present: normal inspection - Back Exam Back exam: Present: normal inspection - Neurological Exam Neurological exam: Present: alert, oriented X3 - Psychiatric Psychiatric exam: Present: normal affect, normal mood - Skin Skin exam: Present: warm, dry, intact, normal color. Absent: rash ED Course Vital Signs 09/01/18 09/01/18 09/01/18 08:08 09:34 10:33 Temperature 98.7 F Pulse Rate 74 Respiratory 18 18 17 Rate Blood Pressure 119/46 Blood Pressure 119/46 [Right] O2 Sat by Pulse 99 Oximetry 09/01/18 09/01/18 09/01/18 11:03 11:52 12:22 Temperature Pulse Rate 70 Respiratory 18 17 16 Rate Blood Pressure Blood Pressure 101/57 [Right] O2 Sat by Pulse 99 Oximetry - Reevaluation(s) Reevaluation #1: She is laying comfortable in the ED bed, receiving her fluids. Activity vomiting resolved at the moment. Patient states she still feels a little discomfort. Morphine 2 mg and Pepcid IV ordered. Patient is stable at this moment. 09/01/18 10:08 ED Medical Decision Making - Lab Data Result diagrams: 09/01/18 08:53 09/01/18 08:53 - Medical Decision Making 37-year-old female presents with a gastritis flareup. Labs ordered. Labs are within normal limits Patient received 1 L of normal saline, 2 mg of morphine 15 mg of Toradol and Pepcid. She repeats reports then better after administration. Patient was challenged with apple sauce. ER Ayleen EMT tech states the patient was actively stick in her finger in her mouth to elicit vomiting vomiting resolved Critical care attestation.: If time is entered above; I have spent that time in minutes in the direct care of this critically ill patient, excluding procedure time. ED Disposition Clinical Impression: GERD (gastroesophageal reflux disease), Gastritis Disposition: DC- TO HOME OR SELFCARE Is pt being admited?: No Does the pt Need Aspirin: No Condition: Stable Instructions: Diet for Ulcers and Gastritis (ED), Gastroenteritis (ED), Ga stroesophageal Reflux Disease (ED), Acute Nausea and Vomiting (ED), Abdominal Pain (ED) Additional Instructions: Make sure to follow up with the primary care physician as discussed. Take all your medications as you've been prescribed. If you have any worsening symptoms or develop new symptoms please return to ED immediately. Prescriptions: Dicyclomine [Bentyl] 10 mg PO BID #30 capsule Ondansetron [Zofran ODT TAB] 8 mg PO Q8HR PRN #90 tab.rapdis PRN Reason: Nausea Pantoprazole [Protonix TAB] 40 mg PO BID #60 tablet Referrals: VASQUEZ HURST MD [Primary Care Provider] - 3-5 Days Forms: Accompanied Note, Work/School Release Form(ED)
[2018-09-01 09:30] LABS: Hemoglobin 11.6 gm/dl (10.1-14.3); Mean Corpuscular HGB Conc 33 % (30-34); Mean Corpuscular Volume 83 fl (79-97); Platelet Count 346 K/mm3 (140-440); Red Blood Count 4.22 M/mm3 (3.65-5.03); Red Cell Distribution Width 12.8 % (13.2-15.2)
[2018-09-01 09:40] LABS: Alanine Aminotransferase 15 units/L (7-56); Albumin 4.5 g/dL (3.9-5); BUN/Creatinine Ratio 32; Blood Urea Nitrogen 19 mg/dL (7-17); Calcium 9.2 mg/dL (8.4-10.2); Hemolysis Index 20
[2018-09-01 09:57] LABS: Monocytes # (Auto) 0.5 K/mm3 (0.0-0.8); Monocytes % (Auto) 2.8 % (0.0-7.3)
[2018-09-01] MEDS ORDERED: MORPHINE IV ONE (10:02)
[2018-09-01] MEDS ORDERED: PEPCID IV ONE (10:07)
[2018-09-01 11:04] VITALS: BP 101/57
[2018-09-01] MEDS ORDERED: BENTYL IM ONE (11:30)
[2018-09-01] MEDS ORDERED: GEODON IM ONE (11:31)
[2018-09-01] MEDS ORDERED: D5NS 1,000 ML IV SCH (12:00)
[2018-09-01 13:20] LABS: Basophils % (Manual) 0 % (0.0-1.8); Eosinophils % (Manual) 0 % (0.0-4.3); Total Cells Counted 100
[2018-09-01 13:21] LABS: Anisocytosis 1+; Ovalocytes Few; Platelet Estimate Consistent w Auto; Poikilocytosis 1+
== END 2018-09-01 14:09 | disposition home or self-care (01) ==
LOC: ED 08:01
DX: K21.9 Gastro-esophageal reflux disease without esophagitis (principal); K29.70 Gastritis, unspecified, without bleeding; G43.909 Migraine, unspecified, not intractable, without status migrainosus; Z90.49 Acquired absence of other specified parts of digestive tract
CPT/HCPCS: 36415; 80053; 82150; 83690; 84703; 85007; 85025; 96361; 96372; 96374; 96375; 96376; 99283; J0500; J1885; J2270; J2405; J3486; J7030; J7042; 96366

== ENCOUNTER 2020-05-05 08:10 | Emergency (ER) | payer OTHER ==
[2020-05-05] MEDS ORDERED: ONDANSETRON 4 MG ODT TAB ONE (09:13)
[2020-05-05] MEDS ORDERED: ONDANSETRON 4 MG ODT TAB PO ONE (09:14)
[2020-05-05 09:20] LABS: Basophils % (Auto) 0.3 % (0.0-1.8); Hematocrit 33.8 % (30.3-42.9); Hemoglobin 11.4 gm/dl (10.1-14.3); Lymphocytes # (Auto) 1.2 K/mm3 (1.2-5.4); Lymphocytes % (Auto) 9.2 % (13.4-35.0); Mean Corpuscular HGB Conc 34 % (30-34); Mean Corpuscular Volume 82 fl (79-97); Monocytes # (Auto) 0.4 K/mm3 (0.0-0.8); Platelet Count 422 K/mm3 (140-440); Red Blood Count 4.12 M/mm3 (3.65-5.03); Red Cell Distribution Width 13.1 % (13.2-15.2)
[2020-05-05 09:42] LABS: Alanine Aminotransferase 13 units/L (7-56); Albumin 4.6 g/dL (3.9-5); Blood Urea Nitrogen 17 mg/dL (7-17); Calcium 9.6 mg/dL (8.4-10.2); Hemolysis Index 0
[2020-05-05 09:53] LABS: BUN/Creatinine Ratio 34
[2020-05-05] MEDS ORDERED: FAMOTIDINE 20 MG/2 ML INJ IV ONE (10:01)
[2020-05-05] MEDS ORDERED: SODIUM CHLORIDE 0.9% 1000 ML 1,000 ML IV ONE ×2 (10:01→14:54)
--- NOTE | 2020-05-05 10:05 | Emergency Department Report ---
Vomiting/Diarrhea - HPI Chief Complaint: Nausea/Vomiting/Diarrhea Stated Complaint: VOMIT/CHEST PAIN Time Seen by Provider: 05/05/20 10:00 Duration: 2 Days Nausea/Vomiting Severity: Moderate Diarrhea Severity: Mild Pain Location: Epigastric Symptoms: No Watery Diarrhea, No Bloody diarrhea, No Fever, No Able to Tolerate Fluids, No Recent Unusual Foods, No Recent Untreated Water, No Recent use of Antibiotics, No Family w/ Similar Symptoms, No Contacts w/ Similar Symptoms, No Rash, No Hematuria, No Recent URI Symptoms Other History: The patient was evaluated in the emergency department for symptoms described in the history of present illness. He/she was evaluated in the context of the global COVID-19 pandemic, which necessitated consideration that the patient might be at risk for infection with the virus that causes COVID-19. Institutional protocols and algorithms that pertain to the evaluation of patients at risk for COVID-19 are in a state of rapid change based on information released by regulatory bodies including the CDC and federal and state organizations. These policies and algorithms were followed during the patient's care in the emergency department. Please note that these policies, procedures and recommendations changed on a rapid basis. 39-year-old - [place] female presents to the emergency room complaining of nausea vomiting for 2 days. Patient states that her GERD is acting up. Patient reports that she is followed by Dr. Bennett at the GI specialist. She does admit to diarrhea that started on . She denies any fever chills. She states that she has epigastric pain. Patient reports that tdfy-[id number] medications usually does not help when she has a flareup. Patient reports that she is allergic to Reglan as it causes suicidal homicidal ideation. ED Review of Systems ROS: Stated complaint: VOMIT/CHEST PAIN Other details as noted in HPI Comment: All other systems reviewed and negative ED Past Medical Hx - Past Medical History Previous Medical History?: Yes Hx Hypertension: No Hx Congestive Heart Failure: No Hx Diabetes: No Hx Deep Vein Thrombosis: No Hx GERD: Yes Hx Liver Disease: No Hx Renal Disease: Yes (UTI) Hx Sickle Cell Disease: No Hx Headaches / Migraines: Yes Hx Seizures: No Hx Kidney Stones: Yes Hx Asthma: No Hx COPD: No Hx HIV: No Additional medical history: GASTROPARESIS - Surgical History Past Surgical History?: Yes Hx Cholecystectomy: Yes Additional Surgical History: x 3 , left ovary removed - Social History Smoking Status: Never Smoker Substance Use Type: None - Medications Home Medications: Home Medications Medication Instructions Recorded Confirmed Last Taken Type Dicyclomine [Bentyl] 10 mg PO BID #30 capsule 09/01/18 Unknown Rx Ondansetron [Zofran ODT TAB] 8 mg PO Q8HR PRN #15 tab.rapdis 05/05/20 Unknown Rx Pantoprazole [Protonix TAB] 40 mg PO BID #60 tablet 05/05/20 Unknown Rx Promethazine [Phenergan SUPPOS] 25 mg [place] Q6H PRN #30 supp.rect 05/05/20 Unknown Rx Vomiting Diarrhea Exam - Exam General: Vital signs noted. No distress. Alert and acting appropriately. HEENT: Yes Moist Mucous Membranes, No Pharyngeal Erythema, No Pharyngeal Exudates, No Rhinorrhea, No Conjuctival Injection, No Frontal Tenderness, No Maxillary Tenderness Neck: No Adenopathy, No Rigidity Lungs: Yes Clear Lung Sounds, Yes Good Air Exchange, No Wheezes, No Stridor, No Cough, No Nasal Flaring, No Retractions, No Use of Accessory Muscles Heart exam: Regular: Yes, Murmur: No, Tachycardia: No Abdomen: Tenderness: Yes, Peritoneal Signs: No, Distention: No, Hyperactive Bowel sounds: No Neurologic: Alert and oriented, no deficits. Musculoskeletal: Unremarkable. ED Course Vital Signs 05/05/20 08:23 Temperature 98.9 F Pulse Rate 78 Respiratory 20 Rate Blood Pressure 111/78 O2 Sat by Pulse 99 Oximetry ED Medical Decision Making - Lab Data Result diagrams: 05/05/20 08:59 05/05/20 08:59 Laboratory Tests 05/05/20 05/05/20 05/05/20 08:59 08:59 Unknown WBC 12.9 H RBC 4.12 Hgb 11.4 Hct 33.8 MCV 82 MCH 28 MCHC 34 RDW 13.1 L Plt Count 422 Lymph % (Auto) 9.2 L Morrison % (Auto) 3.0 Eos % (Auto) 0.0 Baso % (Auto) 0.3 Lymph # (Auto) 1.2 Morrison # (Auto) 0.4 Eos # (Auto) 0.0 Baso # (Auto) 0.0 Seg Neutrophils % 87.5 H Seg Neutrophils # 11.3 H Sodium 139 Potassium 3.6 Chloride 103.7 Carbon Dioxide 21 L Anion Gap 18 BUN 17 Creatinine 0.5 L Estimated GFR > 60 BUN/Creatinine Ratio 34 Glucose 134 H Calcium 9.6 Total Bilirubin 0.50 AST 18 ALT 13 Alkaline Phosphatase 101 Total Protein 8.8 H Albumin 4.6 Albumin/Globulin Ratio 1.1 Lipase 12 L Urine Color Yellow Urine Turbidity Slightly-cloudy Urine pH 6.0 Ur Specific [place] 1.020 Urine Protein >500 Urine Glucose (UA) Neg Urine Ketones 80 Urine Blood Lg Urine Nitrite Neg Urine Bilirubin Neg Urine Urobilinogen < 2.0 Ur Leukocyte Esterase Neg Urine WBC (Auto) 10.0 H Urine RBC (Auto) 164.0 U Epithel Cells (Auto) 5.0 Urine Bacteria (Auto) 1+ Urine Mucus 2+ Urine HCG, Qual Negative - Medical Decision Making 39-year-old -[place] female presents to the emergency room complaining of nausea vomiting for 2 days. Patient states that her GERD is acting up. Patient reports that she is followed by Dr. Bennett at the GI specialist. She d oes admit to diarrhea that started on . She denies any fever chills. She states that she has epigastric pain. Patient reports that [id number]-[id number] medications usually does not help when she has a flareup. Patient reports that she is allergic to Reglan as it causes suicidal homicidal ideation. Patient had an IV, normal saline, Zofran 4 mg IV, Bentyl 10 mg Pepcid 10 mg. Patient has been given Haldol 5 mg IM for cyclic vomiting. Was also given Benadryl for nausea and vomiting. Patient will be discharged home on Protonix, Zofran and Phenergan suppositories and a referral to follow-up with her primary GI specialist. Critical care attestation.: If time is entered above; I have spent that time in minutes in the direct care of this critically ill patient, excluding procedure time. ED Disposition Clinical Impression: Cannabis hyperemesis syndrome concurrent with and due to cannabis abuse, Nausea & vomiting Disposition: DC-01 TO HOME OR SELFCARE Is pt being admited?: No Does the pt Need Aspirin: No Condition: Stable Instructions: Acute Nausea and Vomiting (ED) Additional Instructions: Please take medications as prescribed. Increase your fluid intake advance your diet as tolerated. Follow-up with your natural resources faculty member. Prescriptions: Promethazine [Phenergan SUPPOS] 25 mg [place] Q6H PRN #30 supp.rect PRN Reason: Nausea And Vomiting Pantoprazole [Protonix TAB] 40 mg PO BID #60 tablet Ondansetron [Zofran ODT TAB] 8 mg PO Q8HR PRN #15 tab.rapdis PRN Reason: Nausea Referrals: PRIMARY CARE, [Primary Care Provider] - 3-5 Days [facility] [Provider Group] - 3-5 Days Forms: Work/School Release Form(ED)
[2020-05-05 10:14] LABS: Bacteria,Urine 1+ /HPF (Negative); Bilirubin,Urine NEG (Negative); Blood,Urine LG (Negative); Color,Urine Yellow (Yellow); Mucus,Urine 2+ /HPF; Urobilinogen,Urine < 2.0 mg/dL (<2.0)
[2020-05-05 10:18] LABS: Protein,Urine >500 mg/dL (Negative)
[2020-05-05 10:22] LABS: HCG Qualitative,Urine Negative (Negative)
[2020-05-05] MEDS ORDERED: DICYCLOMINE 20 MG/2 ML INJ IM ONE (10:38)
[2020-05-05] MEDS ORDERED: MORPHINE 4 MG/1 ML INJ IV ONE (10:39)
[2020-05-05 13:01] LABS: Amphetamine Screen,Urine PRESUMPTIVE NEGATIVE; Benzodiazepines Screen,Urine PRESUMPTIVE NEGATIVE; Cannabinoid Screen,Urine PRESUMPTIVE POSITIVE; Cocaine Screen,Urine PRESUMPTIVE NEGATIVE; Methadone Screen,Urine PRESUMPTIVE NEGATIVE; Opiate Screen,Urine PRESUMPTIVE NEGATIVE
[2020-05-05] MEDS ORDERED: diphenhydrAMINE 50 MG/ML VIAL IV ONE (13:25)
[2020-05-05] MEDS ORDERED: ONDANSETRON 4 MG/2 ML INJ IV ONE (13:25)
[2020-05-05] MEDS ORDERED: HALOPERIDOL LACTATE 5 MG/1 ML INJ IM ONE (14:51)
[2020-05-05 17:21] VITALS: BP 107/62
== END 2020-05-05 17:22 | disposition home or self-care (01) ==
LOC: ED 08:10
DX: R11.10 Vomiting, unspecified (principal); F12.10 Cannabis abuse, uncomplicated; K21.9 Gastro-esophageal reflux disease without esophagitis; G43.909 Migraine, unspecified, not intractable, without status migrainosus; K31.84 Gastroparesis; Z90.49 Acquired absence of other specified parts of digestive tract; Z79.899 Other long term (current) drug therapy; Z98.890 Other specified postprocedural states; Z88.1 Allergy status to other antibiotic agents
CPT/HCPCS: 36415; 80053; 80307; 81001; 81025; 83690; 85025; 87086; 96361; 96372; 96374; 96375; 99283; J0500; J1200; J1630; J2270; J2405; J7030; Q0162

== ENCOUNTER 2020-07-26 21:02 | Emergency (ER) | payer SELFPAY ==
--- NOTE | 2020-07-26 21:09 | Event Note ---
ED Screening Note ED Screening Note: severe epigastric pain on menses out of her amitrip and protonix is not helping no n/v/d no fever This initial assessment/diagnostic orders/clinical plan/treatment(s) is/are subject to change based on patients health status, clinical progression and re- assessment by fellow clinical providers in the ED. Further treatment and workup at subsequent clinical providers discretion. Patient/guardian urged not to elope from the ED as their condition may be serious if not clinically assessed and managed. Initial orders include: ua/labs xr
[2020-07-26] MEDS ORDERED: LIDOCAINE VISCOUS 2% 15 ML ORAL LIQD PO ONE (21:18)
[2020-07-26] MEDS ORDERED: ALUM-MAG HYDROXIDE-SIMETHICONE 200-200-20MG/5ML ORAL LIQD 30 ML PO ONE (21:18)
[2020-07-26] MEDS ORDERED: FAMOTIDINE 20 MG TAB PO ONE (21:18)
[2020-07-26 21:19] VITALS: BP 102/71
[2020-07-26 21:35] LABS: Hematocrit 34.4 % (30.3-42.9); Hemoglobin 11.4 gm/dl (10.1-14.3); Mean Corpuscular HGB Conc 33 % (30-34); Mean Corpuscular Volume 83 fl (79-97); Platelet Count 447 K/mm3 (140-440); Red Blood Count 4.14 M/mm3 (3.65-5.03); Red Cell Distribution Width 13.5 % (13.2-15.2)
[2020-07-26 21:53] LABS: Blood Urea Nitrogen 19 mg/dL (7-17); Calcium 9.5 mg/dL (8.4-10.2); Hemolysis Index 4
[2020-07-26 21:54] LABS: BUN/Creatinine Ratio 27
== END 2020-07-26 21:17 | disposition left against medical advice (07) ==
LOC: ED 21:02
DX: K21.9 Gastro-esophageal reflux disease without esophagitis (principal); Z53.21 Procedure and treatment not carried out due to patient leaving prior to being seen by health care provider
CPT/HCPCS: 36415; 80048; 85027

== ENCOUNTER 2020-07-27 10:54 | Emergency (ER) | payer SELFPAY ==
[2020-07-27] MEDS ORDERED: MORPHINE 4 MG/1 ML INJ IV ONE ×3 (11:19→15:05)
[2020-07-27] MEDS ORDERED: SODIUM CHLORIDE 0.9% 1000 ML 1,000 ML IV ONE ×2 (11:19→12:26)
[2020-07-27] MEDS ORDERED: ONDANSETRON 4 MG/2 ML INJ IV ONE ×3 (11:20→13:31)
[2020-07-27] MEDS ORDERED: PANTOPRAZOLE 40 MG INJ IV ONE (11:20)
--- NOTE | 2020-07-27 11:25 | Emergency Department Report ---
<BRANDON VALDEZ - Last Filed: 07/27/20 15:48> ED Abdominal Pain HPI - General Chief Complaint: Abdominal Pain Stated Complaint: CHEST/ABDOMINAL PAIN/VOMITING PUI?: No Time Seen by Provider: 07/27/20 11:16 Source: patient Mode of arrival: Ambulatory Limitations: No Limitations - History of Present Illness Initial Comments: Chief complaint: " My reflux is acting up." HPI: This is a 39-year-old female with history of GERD, recurrent abdominal pain with nausea vomiting, marijuana dependence, who presents with 3 days of abdominal pain radiating to the chest. She has epigastric pain crampy dull radiating to the chest. She has had several previous episodes. She is followed by air quality technician Dr. Santana for several years who recommended marijuana use only in moderation. Symptoms began after eating chili 3 days ago. She did smoke marijuana after eating when she began having abdominal pain. Pain is 10 out of 10 in severity. Gradual onset of symptoms. Pain does not change with movement or palpation. Patient states that amitriptyline normally helps her pain. She has run out of this medication. MD Complaint: abdominal pain -: Gradual, days(s) (3) Location: epigastric Radiation: chest Severity: severe Severity scale (0 -10): 10 Quality: cramping, aching, dull Consistency: constant Improves With: other (Marijuana) Worsens With: nothing Context: other Associated Symptoms: nausea, vomiting - Related Data Previous Rx's Medication Instructions Recorded Last Taken Type Dicyclomine [Bentyl] 10 mg PO BID #30 capsule 09/01/18 Unknown Rx Ondansetron [Zofran ODT TAB] 8 mg PO Q8HR PRN #15 tab.rapdis 05/05/20 Unknown Rx Pantoprazole [Protonix TAB] 40 mg PO BID #60 tablet 05/05/20 Unknown Rx Promethazine [Phenergan SUPPOS] 25 mg [place] Q6H PRN #30 supp.rect 05/05/20 Unknown Rx Amitriptyline [Elavil] 25 mg PO QHS #30 tab 07/27/20 Unknown Rx Promethazine [Phenergan] 25 mg PO Q6HR PRN #10 tab 07/27/20 Unknown Rx Allergies Allergy/AdvReac Type Severity Reaction Status Date / Time metoclopramide HCl AdvReac Mild Unknown Verified 09/16/16 09:25 [From [facility]] ED Review of Systems Comment: All other systems reviewed and negative Constitutional: denies: fever Respiratory: denies: cough, shortness of breath Cardiovascular: denies: chest pain Gastrointestinal: abdominal pain, nausea, vomiting. denies: diarrhea ED Past Medical Hx - Past Medical History Previous Medical History?: Yes Hx Hypertension: No Hx Congestive Heart Failure: No Hx Diabetes: No Hx Deep Vein Thrombosis: No Hx GERD: Yes Hx Liver Disease: No Hx Renal Disease: Yes (UTI) Hx Sickle Cell Disease: No Hx Headaches / Migraines: Yes Hx Seizures: No Hx Kidney Stones: Yes Hx Asthma: No Hx COPD: No Hx HIV: No Additional medical history: GASTROPARESIS - Surgical History Past Surgical History?: Yes Hx Cholecystectomy: Yes Additional Surgical History: x 3 , left ovary removed - Social History Smoking Status: Never Smoker Substance Use Type: None - Medications Home Medications: Home Medications Medication Instructions Recorded Confirmed Last Taken Type Dicyclomine [Bentyl] 10 mg PO BID #30 capsule 09/01/18 Unknown Rx Ondansetron [Zofran ODT TAB] 8 mg PO Q8HR PRN #15 tab.rapdis 05/05/20 Unknown Rx Pantoprazole [Protonix TAB] 40 mg PO BID #60 tablet 05/05/20 Unknown Rx Promethazine [Phenergan SUPPOS] 25 mg [place] Q6H PRN #30 supp.rect 05/05/20 Unknown Rx Amitriptyline [Elavil] 25 mg PO QHS #30 tab 07/27/20 Unknown Rx Promethazine [Phenergan] 25 mg PO Q6HR PRN #10 tab 07/27/20 Unknown Rx ED Physical Exam - General Limitations: No Limitations General appearance: alert, in no apparent distress, other (Patient appears uncomfortable but nontoxic) - Head Head exam: Present: atraumatic, normocephalic - Eye Eye exam: Present: normal appearance - ENT ENT exam: Present: mucous membranes moist - Neck Neck exam: Present: normal inspection, full ROM - Respiratory Respiratory exam: Present: normal lung sounds bilaterally. Absent: respiratory distress, wheezes, rales, rhonchi - Cardiovascular Cardiovascular Exam: Present: regular rate, normal rhythm, normal heart sounds. Absent: systolic murmur, diastolic murmur, rubs, gallop - GI/Abdominal GI/Abdominal exam: Present: soft, normal bowel sounds. Absent: distended, tenderness, guarding, rebound - Extremities Exam Extremities exam: Present: normal inspection - Neurological Exam Neurological exam: Present: alert, oriented X3 - Psychiatric Psychiatric exam: Present: normal affect, normal mood - Skin Skin exam: Present: warm, dry, intact, normal color. Absent: rash ED Medical Decision Making - Lab Data Result diagrams: 07/27/20 11:29 07/27/20 11:29 - Medical Decision Making Clinical impression: Cannabinoid hyperemesis syndrome. Chemistry within normal limits no evidence of metabolic derangement or kidney injury. Patient has p ersistent leukocytosis over the past several years reflective of stress reaction. No fever or tenderness to indicate acute inflammatory reaction. With persistent pain, CT scan of the abdomen pelvis has been ordered in order to rule out acute inflammatory obstructive process. Anticipate discharge if CT is normal. Prescriptions provided: Amitriptyline and promethazine ED Disposition Clinical Impression: Cannabinoid hyperemesis syndrome, Acute abdominal pain, Nausea & vomiting Disposition: - TO HOME OR SELFCARE Is pt being admited?: No Does the pt Need Aspirin: No Condition: Stable Instructions: Abdominal Pain, Adult, [id number], Abdominal Pain (ED) Prescriptions: Amitriptyline [Elavil] 25 mg PO QHS #30 tab Promethazine [Phenergan] 25 mg PO Q6HR PRN #10 tab PRN Reason: Nausea Referrals: [facility] MD [Staff Physician] - 3-5 Days <NEGRO ALVAREZ - Last Filed: 07/27/20 17:16> ED Review of Systems ROS: Stated complaint: CHEST/ABDOMINAL PAIN/VOMITING Other details as noted in HPI ED Course Vital Signs 07/27/20 07/27/20 07/27/20 10:59 11:30 11:50 Temperature 98.4 F Pulse Rate 88 Respiratory 18 Rate Blood Pressure 123/72 99/50 113/68 [Right] O2 Sat by Pulse 100 Oximetry 07/27/20 15:02 Temperature Pulse Rate Respiratory Rate Blood Pressure 104/61 [Right] O2 Sat by Pulse Oximetry ED Medical Decision Making - Lab Data Result diagrams: 07/27/20 11:29 07/27/20 11:29 - Radiology Data Radiology results: report reviewed, image reviewed CT imaging devoid of any acute abnormalities. Critical care attestation.: If time is entered above; I have spent that time in minutes in the direct care of this critically ill patient, excluding procedure time.
[2020-07-27 11:47] LABS: Basophils % (Auto) 0.3 % (0.0-1.8); Eosinophils % (Auto) 0.1 % (0.0-4.3); Hemoglobin 10.9 gm/dl (10.1-14.3); Lymphocytes # (Auto) 1.8 K/mm3 (1.2-5.4); Lymphocytes % (Auto) 13.7 % (13.4-35.0); Mean Corpuscular HGB Conc 35 % (30-34); Mean Corpuscular Volume 81 fl (79-97); Monocytes # (Auto) 0.9 K/mm3 (0.0-0.8); Red Blood Count 3.82 M/mm3 (3.65-5.03); Red Cell Distribution Width 13.3 % (13.2-15.2)
[2020-07-27 12:03] LABS: Platelet Count 410 K/mm3 (140-440)
[2020-07-27 12:04] LABS: Blood Urea Nitrogen 21 mg/dL (7-17); Calcium 9.1 mg/dL (8.4-10.2); Hemolysis Index 18
[2020-07-27 12:07] LABS: BUN/Creatinine Ratio 30
[2020-07-27] MEDS ORDERED: HYDROmorphone 1 MG/1 ML INJ IV ONE (12:23)
[2020-07-27] MEDS ORDERED: HALOPERIDOL LACTATE 5 MG/1 ML INJ IV ONE (15:07)
[2020-07-27 15:42] VITALS: BP 104/61
--- NOTE | 2020-07-27 17:01 | Cat Scan Report ---
CT abdomen pelvis w con INDICATION: abdominal pain vomiting. TECHNIQUE: All CT scans at this location are performed using CT dose reduction for ALARA by means of automated e xposure control. COMPARISON: 04/28/2018 FINDINGS: Lung bases are clear. Cholecystectomy. Liver, spleen, pancreas, kidneys and adrenals are negative. Ab dominal aorta is normal in size. No adenopathy. Pelvis Normal appendix. Uterus is slightly enlarged. Large ovarian cysts on the previous exam are no longer apparent. Urinary bladder is negative. No free fluid or inflammation. No significant bowel abnormalit ies. No skeletal lesions. IMPRESSION: 1. No acute abnormality. Signer Name: Saravanan Philippe MD Signed: 07/27/2020 4:56 PM Workstation Name: [id number]
== END 2020-07-27 18:02 | disposition home or self-care (01) ==
LOC: ED 10:54
DX: R11.2 Nausea with vomiting, unspecified (principal); R10.13 Epigastric pain; K21.9 Gastro-esophageal reflux disease without esophagitis; G43.909 Migraine, unspecified, not intractable, without status migrainosus; N20.0 Calculus of kidney; Z90.49 Acquired absence of other specified parts of digestive tract; Z98.890 Other specified postprocedural states; Z79.899 Other long term (current) drug therapy
CPT/HCPCS: 36415; 74177; 80048; 84703; 85025; 96361; 96374; 96375; 96376; 99284; C9113; J1170; J1630; J2270; J2405; J7030; Q9967

== ENCOUNTER 2020-09-05 15:34 | Emergency (ER) | payer SELFPAY ==
[2020-09-05 15:43] VITALS: BP 107/74
--- NOTE | 2020-09-05 16:07 | Emergency Department Report ---
- General Chief complaint: Skin Rash Stated complaint: RED/ITCHY SKIN/PAIN Time Seen by Provider: 09/05/20 16:01 Source: patient Mode of arrival: Ambulatory Limitations: No Limitations - History of Present Illness Initial comments: 39-year-old -[place] female presents to the emergency room for rash under left arm. Patient states that she has been using Hibiclens wash, Benadryl cream, hydrocortisone cream or even Vagisil cream. Patient denies any fever. She states she did have a boil and she had worked on that and it had improved but now has a rash. complaint: rash Onset/Timin -: week(s) Tetanus Up to Date: no Location: RUE (axilla) Severity: moderate Severity scale (0 -10): 5 Quality: burning Consistency: intermittent Improves with: none - Related Data Previous Rx's Medication Instructions Recorded Last Taken Type Dicyclomine [Bentyl] 10 mg PO BID #30 capsule 09/01/18 Unknown Rx Ondansetron [Zofran ODT TAB] 8 mg PO Q8HR PRN #15 tab.rapdis 05/05/20 Unknown Rx Pantoprazole [Protonix TAB] 40 mg PO BID #60 tablet 05/05/20 Unknown Rx Promethazine [Phenergan SUPPOS] 25 mg [place] Q6H PRN #30 supp.rect 05/05/20 Unknown Rx Amitriptyline [Elavil] 25 mg PO QHS #30 tab 07/27/20 Unknown Rx Promethazine [Phenergan] 25 mg PO Q6HR PRN #10 tab 07/27/20 Unknown Rx Doxycycline Hyclate 100 mg PO BID 10 Days #20 tablet. 09/05/20 Unknown Rx Allergies Allergy/AdvReac Type Severity Reaction Status Date / Time metoclopramide HCl AdvReac Mild Unknown Verified 04/11/16 09:25 [From Reglan] Abscess Boil HPI - HPI Chief Complaint: Skin Rash Stated Complaint: RED/ITCHY SKIN/PAIN Time Seen by Provider: 09/05/20 16:01 Home Medications: Previous Rx's Medication Instructions Recorded Last Taken Type Dicyclomine [Bentyl] 10 mg PO BID #30 capsule 09/01/18 Unknown Rx Ondansetron [Zofran ODT TAB] 8 mg PO Q8HR PRN #15 tab.rapdis 05/05/20 Unknown Rx Pantoprazole [Protonix TAB] 40 mg PO BID #60 tablet 05/05/20 Unknown Rx Promethazine [Phenergan SUPPOS] 25 mg [place] Q6H PRN #30 supp.rect 05/05/20 Unknown Rx Amitriptyline [Elavil] 25 mg PO QHS #30 tab 07/27/20 Unknown Rx Promethazine [Phenergan] 25 mg PO Q6HR PRN #10 tab 07/27/20 Unknown Rx Doxycycline Hyclate 100 mg PO BID 10 Days #20 tablet.dr 09/05/20 Unknown Rx Allergies/Adverse Reactions: Allergies Allergy/AdvReac Type Severity Reaction Status Date / Time metoclopramide HCl AdvReac Mild Unknown Verified 04/11/16 09:25 [From [facility]] ED Review of Systems ROS: Stated complaint: RED/ITCHY SKIN/PAIN Other details as noted in HPI Comment: All other systems reviewed and negative ED Past Medical Hx - Past Medical History Previous Medical History?: Yes Hx Hypertension: No Hx Congestive Heart Failure: No Hx Diabetes: No Hx Deep Vein Thrombosis: No Hx GERD: Yes Hx Liver Disease: No Hx Renal Disease: Yes (UTI) Hx Sickle Cell Disease: No Hx Headaches / Migraines: Yes Hx Seizures: No Hx Kidney Stones: Yes Hx Asthma: No Hx COPD: No Hx HIV: No Additional medical history: GASTROPARESIS - Surgical History Past Surgical History?: Yes Hx Cholecystectomy: Yes Additional Surgical History: x 3 , left ovary removed - Social History Smoking Status: Never Smoker Substance Use Type: None - Medications Home Medications: Home Medications Medication Instructions Recorded Confirmed Last Taken Type Dicyclomine [Bentyl] 10 mg PO BID #30 capsule 09/01/18 Unknown Rx Ondansetron [Zofran ODT TAB] 8 mg PO Q8HR PRN #15 tab.rapdis 05/05/20 Unknown Rx Pantoprazole [Protonix TAB] 40 mg PO BID #60 tablet 05/05/20 Unknown Rx Promethazine [Phenergan SUPPOS] 25 mg [place] Q6H PRN #30 supp.rect 05/05/20 Unknown Rx Amitriptyline [Elavil] 25 mg PO QHS #30 tab 07/27/20 Unknown Rx Promethazine [Phenergan] 25 mg PO Q6HR PRN #10 tab 07/27/20 Unknown Rx Doxycycline Hyclate 100 mg PO BID 10 Days #20 tablet. 09/05/20 Unknown Rx ED Physical Exam - General Limitations: No Limitations General appearance: alert, in no apparent distress - Head Head exam: Present: atraumatic, normocephalic - Eye Eye exam: Present: normal appearance - ENT ENT exam: Present: mucous membranes moist - Extremities Exam Extremities exam: Present: normal inspection, full ROM - Back Exam Back exam: Present: normal inspection, full ROM - Skin Skin exam: Present: rash, erythema ED Course Vital Signs 09/05/20 15:40 Temperature 98.6 F Pulse Rate 63 Respiratory 18 Rate Blood Pressure 107/74 O2 Sat by Pulse 97 Oximetry ED Medical Decision Making - Medical Decision Making 39-year-old -[place] female presents to the emergency room for rash under left arm. Patient states that she has been using Hibiclens wash, Benadryl cream, hydrocortisone cream or even Vagisil cream. Patient denies any fever. She states she did have a boil and she had worked on that and it had improved but now has a rash. Patient be discharged on doxycycline 100 mg p.o. twice daily for 10 days. Continue with the Hibiclens. Follow-up with [facility]. Critical care attestation.: If time is entered above; I have spent that time in minutes in the direct care of this critically ill patient, excluding procedure time. ED Disposition Clinical Impression: Rash Cellulitis Qualifiers: Site of cellulitis: extremity Site of cellulitis of extremity: axilla Laterality: left Qualified Code(s): L03.112 - Cellulitis of left axilla Disposition: DC-01 TO HOME OR SELFCARE Is pt being admited?: No Does the pt Need Aspirin: No Condition: Stable Instructions: Cellulitis, Adult, [id number], Rash, Adult, [id number] Additional Instructions: Please complete antibiotics as prescribed. Keep the area clean and dry. Prescriptions: Doxycycline Hyclate 100 mg PO BID 10 Days #20 tablet. Referrals: [facility] [Provider Group] - 3-5 Days Forms: Work/School Release Form(ED)
== END 2020-09-05 17:00 | disposition home or self-care (01) ==
LOC: ED 15:34
DX: L03.112 Cellulitis of left axilla (principal); K21.9 Gastro-esophageal reflux disease without esophagitis; G43.909 Migraine, unspecified, not intractable, without status migrainosus; N20.0 Calculus of kidney; Z90.49 Acquired absence of other specified parts of digestive tract; Z98.890 Other specified postprocedural states; Z79.899 Other long term (current) drug therapy; Z88.8 Allergy status to other drugs, medicaments and biological substances
CPT/HCPCS: 99282

== ENCOUNTER 2020-09-10 11:14 | Emergency (ER) | payer SELFPAY ==
[2020-09-10 11:20] VITALS: BP 100/70
--- NOTE | 2020-09-10 11:30 | Emergency Department Report ---
- General Chief complaint: Skin Rash Stated complaint: RASH UNDER LEFT ARM Time Seen by Provider: 09/10/20 11:23 Source: patient Mode of arrival: Ambulatory Limitations: No Limitations - History of Present Illness Initial comments: This is a 39-year-old female nontoxic, well nourished in appearance, no acute signs of distress presents to the ED with c/o of redness and pain left left axilla area x 2 weeks. Patient denies any pus or drainage. Patient denies any fever, chills, nausea, vomiting, chest pain, shortness of breath, headache or stiff neck. Patient denies significant past medical history. -: week(s) Location: LUE Severity: mild Severity scale (0 -10): 3 Quality: aching Consistency: constant Improves with: none Worsens with: none Associated symptoms: denies other symptoms Treatments Prior to Arrival: none - Related Data Previous Rx's Medication Instructions Recorded Last Taken Type Dicyclomine [Bentyl] 10 mg PO BID #30 capsule 09/01/18 Unknown Rx Ondansetron [Zofran ODT TAB] 8 mg PO Q8HR PRN #15 tab.rapdis 05/05/20 Unknown Rx Pantoprazole [Protonix TAB] 40 mg PO BID #60 tablet 05/05/20 Unknown Rx Promethazine [Phenergan SUPPOS] 25 mg [place] Q6H PRN #30 supp.rect 05/05/20 Unknown Rx Amitriptyline [Elavil] 25 mg PO QHS #30 tab 07/27/20 Unknown Rx Promethazine [Phenergan] 25 mg PO Q6HR PRN #10 tab 07/27/20 Unknown Rx Doxycycline Hyclate 100 mg PO BID 10 Days #20 tablet.dr 09/05/20 Unknown Rx Clindamycin [Clindamycin CAP] 300 mg PO Q8H #21 cap 09/10/20 Unknown Rx Clotrimazole 1% [Lotrimin 1%] 15 gm TP BID #1 tube 09/10/20 Unknown Rx Fluconazole (Nf) [Diflucan TAB] 150 mg PO ONCE #1 tablet 09/10/20 Unknown Rx Ondansetron [Zofran Odt] 4 mg PO Q12H PRN #12 tab.rapdis 09/10/20 Unknown Rx Allergies Allergy/AdvReac Type Severity Reaction Status Date / Time metoclopramide HCl AdvReac Mild Unknown Verified 09/10/20 11:16 [From Reglan] Abscess Boil HPI - HPI Chief Complaint: Skin Rash Stated Complaint: RASH UNDER LEFT ARM Time Seen by Provider: 09/10/20 11:23 Home Medications: Previous Rx's Medication Instructions Recorded Last Taken Type Dicyclomine [Bentyl] 10 mg PO BID #30 capsule 09/01/18 Unknown Rx Ondansetron [Zofran ODT TAB] 8 mg PO Q8HR PRN #15 tab.rapdis 05/05/20 Unknown Rx Pantoprazole [Protonix TAB] 40 mg PO BID #60 tablet 05/05/20 Unknown Rx Promethazine [Phenergan SUPPOS] 25 mg [place] Q6H PRN #30 supp.rect 05/05/20 Unknown Rx Amitriptyline [Elavil] 25 mg PO QHS #30 tab 07/27/20 Unknown Rx Promethazine [Phenergan] 25 mg PO Q6HR PRN #10 tab 07/27/20 Unknown Rx Doxycycline Hyclate 100 mg PO BID 10 Days #20 tablet.dr 09/05/20 Unknown Rx Clindamycin [Clindamycin CAP] 300 mg PO Q8H #21 cap 09/10/20 Unknown Rx Clotrimazole 1% [Lotrimin 1%] 15 gm TP BID #1 tube 09/10/20 Unknown Rx Fluconazole (Nf) [Diflucan TAB] 150 mg PO ONCE #1 tablet 09/10/20 Unknown Rx Ondansetron [Zofran Odt] 4 mg PO Q12H PRN #12 tab.rapdis 09/10/20 Unknown Rx Allergies/Adverse Reactions: Allergies Allergy/AdvReac Type Severity Reaction Status Date / Time metoclopramide HCl AdvReac Mild Unknown Verified 09/10/20 11:16 [From Reglan] ED Review of Systems ROS: Stated complaint: RASH UNDER LEFT ARM Other details as noted in HPI Comment: All other systems reviewed and negative Constitutional: denies: chills, fever Eyes: denies: eye pain, eye discharge, vision change ENT: denies: ear pain, throat pain Respiratory: denies: cough, shortness of breath, wheezing Cardiovascular: denies: chest pain, palpitations Endocrine: no symptoms reported Gastrointestinal: denies: abdominal pain, nausea, diarrhea Genitourinary: denies: urgency, dysuria, discharge Musculoskeletal: denies: back pain, joint swelling, arthralgia Skin: denies: rash, lesions Neurological: denies: headache, weakness, paresthesias Psychiatric: denies: anxiety, depression Hematological/Lymphatic: denies: easy bleeding, easy bruising ED Past Medical Hx - Past Medical History Hx Hypertension: No Hx Congestive Heart Failure: No Hx Diabetes: No Hx Deep Vein Thrombosis: No Hx GERD: Yes Hx Liver Disease: No Hx Renal Disease: Yes (UTI) Hx Sickle Cell Disease: No Hx Headaches / Migraines: Yes Hx Seizures: No Hx Kidney Stones: Yes Hx Asthma: No Hx COPD: No Hx HIV: No Additional medical history: GASTROPARESIS - Surgical History Hx Cholecystectomy: Yes Additional Surgical History: x 3 , left ovary removed - Social History Smoking Status: Never Smoker Substance Use Type: None - Medications Home Medications: Home Medications Medication Instructions Recorded Confirmed Last Taken Type Dicyclomine [Bentyl] 10 mg PO BID #30 capsule 09/01/18 Unknown Rx Ondansetron [Zofran ODT TAB] 8 mg PO Q8HR PRN #15 tab.rapdis 05/05/20 Unknown Rx Pantoprazole [Protonix TAB] 40 mg PO BID #60 tablet 05/05/20 Unknown Rx Promethazine [Phenergan SUPPOS] 25 mg [place] Q6H PRN #30 supp.rect 05/05/20 Unknown Rx Amitriptyline [Elavil] 25 mg PO QHS #30 tab 07/27/20 Unknown Rx Promethazine [Phenergan] 25 mg PO Q6HR PRN #10 tab 07/27/20 Unknown Rx Doxycycline Hyclate 100 mg PO BID 10 Days #20 tablet.dr 09/05/20 Unknown Rx Clindamycin [Clindamycin CAP] 300 mg PO Q8H #21 cap 09/10/20 Unknown Rx Clotrimazole 1% [Lotrimin 1%] 15 gm TP BID #1 tube 09/10/20 Unknown Rx Fluconazole (Nf) [Diflucan TAB] 150 mg PO ONCE #1 tablet 09/10/20 Unknown Rx Ondansetron [Zofran Odt] 4 mg PO Q12H PRN #12 tab.rapdis 09/10/20 Unknown Rx ED Physical Exam - General Limitations: No Limitations General appearance: alert, in no apparent distress - Head Head exam: Present: atraumatic, normocephalic - Neck Neck exam: Present: normal inspection, full ROM - Respiratory Respiratory exam: Absent: respiratory distress - Cardiovascular Cardiovascular Exam: Present: regular rate - Extremities Exam Extremities exam: Present: normal inspection, full ROM, normal capillary refill. Absent: tenderness, joint swelling - Back Exam Back exam: Present: normal inspection, full ROM - Neurological Exam Neurological exam: Present: alert, oriented X3, normal gait - Psychiatric Psychiatric exam: Present: normal affect, normal mood - Skin Skin exam: Present: warm, dry, intact, normal color, other (left axilla cellulitis. No swelling or abscess noted.). Absent: rash ED Course Vital Signs 09/10/20 11:19 Temperature 98.7 F Pulse Rate 92 H Respiratory 18 Rate Blood Pressure 100/70 O2 Sat by Pulse 100 Oximetry - Reevaluation(s) Reevaluation #1: 09/10/20 11:28 Patient is speaking in full sentences with no signs of distress noted. ED Medical Decision Making - Medical Decision Making This is a 39-year-old male that presents with cellulitis. Patient is stable and was examined by me. Exam shows that this also may be a fungal infection. There is no induration, fluctuance. No signs of abscess formation. The area has been outlined with a permanent marker and patient was instructed to observe symptoms of increased redness or swelling and to return to the ER if this does occur. I will discharge patient with Clinda and Clotrimazole. Patient also stated to receive Diflucan and Zofran due to nausea and he is infection from taking antibiotics. Patient did receive a tetanus booster in the ER. Patient was referred to Follow-up with a primary care doctor in 3-5 days or if symptoms worsen and continue return to emergency room as soon as possible. At time of discharge, the patient does not seem toxic or ill in appearance. No acute signs of distress noted. Patient agrees to discharge treatment plan of care. No fu rther questions noted by the patient. Critical care attestation.: If time is entered above; I have spent that time in minutes in the direct care of this critically ill patient, excluding procedure time. ED Disposition Clinical Impression: Tinea corporis Cellulitis Qualifiers: Site of cellulitis: extremity Site of cellulitis of extremity: upper extremity Laterality: left Qualified Code(s): L03.114 - Cellulitis of left upper limb Disposition: DC-01 TO HOME OR SELFCARE Is pt being admited?: No Does the pt Need Aspirin: No Condition: Stable Instructions: Cellulitis, Adult Additional Instructions: Follow-up with a primary care doctor in 3-5 days or if symptoms worsen and continue return to emergency room as soon as possible. Prescriptions: Clindamycin [Clindamycin CAP] 300 mg PO Q8H #21 cap Fluconazole (Nf) [Diflucan TAB] 150 mg PO ONCE #1 tablet Clotrimazole 1% [Lotrimin 1%] 15 gm TP BID #1 tube Ondansetron [Zofran Odt] 4 mg PO Q12H PRN #12 tab.rapdis PRN Reason: Nausea Referrals: PRIMARY CAREMD [Referring] - 3-5 Days NII ROLDAN MD [Staff Physician] - 3-5 Days Forms: Work/School Release Form(ED) Time of Disposition: 11:32
== END 2020-09-10 12:26 | disposition home or self-care (01) ==
LOC: ED 11:14
DX: L03.90 Cellulitis, unspecified (principal); B35.4 Tinea corporis; K21.9 Gastro-esophageal reflux disease without esophagitis; Z79.899 Other long term (current) drug therapy; Z88.8 Allergy status to other drugs, medicaments and biological substances; Z98.890 Other specified postprocedural states
CPT/HCPCS: 99281

== ENCOUNTER 2021-02-15 07:35 | Emergency (ER) | payer SELFPAY ==
[2021-02-15 07:52] VITALS: BP 110/81
[2021-02-15] MEDS ORDERED: ONDANSETRON 4 MG/2 ML INJ IV ONE ×3 (08:21→11:21)
[2021-02-15] MEDS ORDERED: FAMOTIDINE 20 MG/2 ML INJ IV ONE (08:21)
[2021-02-15] MEDS ORDERED: LACTATED RINGERS 1,000 ML IV ONE (08:21)
--- NOTE | 2021-02-15 08:24 | Emergency Department Report ---
ED General Adult HPI - General Chief complaint: Abdominal Pain Stated complaint: CHEST PAINS PUI?: No Time Seen by Provider: 02/15/21 08:20 Source: patient Mode of arrival: Ambulatory Limitations: No Limitations - History of Present Illness Initial comments: 40-year-old female with history of GERD presents for evaluation of vomiting. According to the patient she has had persistent vomiting for 4 days with epigastric pain that radiates up into the chest. She states that her throat feels raw from vomiting. She also reports diarrhea and abdominal discomfort. She states that this is happened many many times in the past, she has followed up with GI, they have her on amitriptyline daily. Symptoms are severe nothing makes them better or worse. Denies fevers, cough. Severity scale (0 -10): 10 - Related Data Previous Rx's Medication Instructions Recorded Last Taken Type Dicyclomine [Bentyl] 10 mg PO BID #30 capsule 09/01/18 Unknown Rx Ondansetron [Zofran ODT TAB] 8 mg PO Q8HR PRN #15 tab.rapdis 05/05/20 Unknown Rx Amitriptyline [Elavil] 25 mg PO QHS #30 tab 07/27/20 Unknown Rx Doxycycline Hyclate 100 mg PO BID 10 Days #20 tablet.dr 09/05/20 Unknown Rx Clindamycin [Clindamycin CAP] 300 mg PO Q8H #21 cap 09/10/20 Unknown Rx Clotrimazole 1% [Lotrimin 1%] 15 gm TP BID #1 tube 09/10/20 Unknown Rx Fluconazole (Nf) [Diflucan TAB] 150 mg PO ONCE #1 tablet 09/10/20 Unknown Rx Ondansetron [Zofran Odt] 4 mg PO Q12H PRN #12 tab.rapdis 09/10/20 Unknown Rx Pantoprazole [Protonix TAB] 40 mg PO DAILY #30 tablet 02/15/21 Unknown Rx Promethazine [Phenergan SUPPOS] 25 mg [place] Q6H PRN #12 supp.rect 02/15/21 Unknown Rx Promethazine [Phenergan] 25 mg PO Q6HR PRN #12 tab 02/15/21 Unknown Rx Allergies Allergy/AdvReac Type Severity Reaction Status Date / Time metoclopramide HCl AdvReac Mild Unknown Verified 02/15/21 08:17 [From [facility]] ED Review of Systems ROS: Stated complaint: CHEST PAINS Other details as noted in HPI Comment: All other systems reviewed and negative Gastrointestinal: as per HPI ED Past Medical Hx - Past Medical History Previous Medical History?: Yes Hx Hypertension: No Hx Congestive Heart Failure: No Hx Diabetes: No Hx Deep Vein Thrombosis: No Hx GERD: Yes Hx Liver Disease: No Hx Renal Disease: Yes (UTI) Hx Sickle Cell Disease: No Hx Headaches / Migraines: Yes Hx Seizures: No Hx Kidney Stones: Yes Hx Asthma: No Hx COPD: No Hx HIV: No Additional medical history: GASTROPARESIS - Surgical History Past Surgical History?: Yes Hx Cholecystectomy: Yes Additional Surgical History: x 3 , left ovary removed - Social History Smoking Status: Never Smoker Substance Use Type: None - Medications Home Medications: Home Medications Medication Instructions Recorded Confirmed Last Taken Type Dicyclomine [Bentyl] 10 mg PO BID #30 capsule 09/01/18 Unknown Rx Ondansetron [Zofran ODT TAB] 8 mg PO Q8HR PRN #15 tab.rapdis 05/05/20 Unknown Rx Amitriptyline [Elavil] 25 mg PO QHS #30 tab 07/27/20 Unknown Rx Doxycycline Hyclate 100 mg PO BID 10 Days #20 tablet.dr 09/05/20 Unknown Rx Clindamycin [Clindamycin CAP] 300 mg PO Q8H #21 cap 09/10/20 Unknown Rx Clotrimazole 1% [Lotrimin 1%] 15 gm TP BID #1 tube 09/10/20 Unknown Rx Fluconazole (Nf) [Diflucan TAB] 150 mg PO ONCE #1 tablet 09/10/20 Unknown Rx Ondansetron [Zofran Odt] 4 mg PO Q12H PRN #12 tab.rapdis 09/10/20 Unknown Rx Pantoprazole [Protonix TAB] 40 mg PO DAILY #30 tablet 02/15/21 Unknown Rx Promethazine [Phenergan SUPPOS] 25 mg [place] Q6H PRN #12 supp.rect 02/15/21 Unknown Rx Promethazine [Phenergan] 25 mg PO Q6HR PRN #12 tab 02/15/21 Unknown Rx ED Physical Exam - General Limitations: No Limitations General appearance: alert, in no apparent distress - Head Head exam: Present: atraumatic, normocephalic - Eye Eye exam: Present: normal appearance - ENT ENT exam: Present: mucous membranes moist - Neck Neck exam: Present: normal inspection - Respiratory Respiratory exam: Present: normal lung sounds bilaterally. Absent: respiratory distress - Cardiovascular Cardiovascular Exam: Present: regular rate, normal rhythm. Absent: systolic murmur, diastolic murmur, rubs, gallop - GI/Abdominal GI/Abdominal exam: Present: soft, tenderness (Epigastric), normal bowel sounds. Absent: distended, guarding, rebound - Extremities Exam Extremities exam: Present: normal inspection - Back Exam Back exam: Present: normal inspection - Neurological Exam Neurological exam: Present: alert, oriented X3 - Psychiatric Psychiatric exam: Present: normal affect, normal mood - Skin Skin exam: Present: warm, dry, intact, normal color. Absent: rash ED Course Vital Signs 02/15/21 02/15/21 07:51 09:39 Temperature 98.3 F Pulse Rate 83 Respiratory 18 16 Rate Blood Pressure 110/81 [Left] O2 Sat by Pulse 97 Oximetry ED Medical Decision Making - Lab Data Result diagrams: 02/15/21 08:06 02/15/21 08:06 - Radiology Data Radiology results: report reviewed normal 2 view cxr - Medical Decision Making Patient presenting for evaluation of vomiting, diarrhea, abdominal cramping that radiates up toward the chest ongoing for 4 days. She states that this feels exactly like what she has had happened many times in the past but cannot keep water down at home. On exam she appears to feel unwell but no acute distress, heart sounds are normal, lungs are clear, abdomen with some mild epigastric tenderness otherwise benign. Differential diagnoses includes gastritis, GERD, dehydration, peptic ulcer disease. Labs chest x-ray and EKG will be obtained. Patient given IV fluids Zofran and Pepcid. Labs are fairly unremarkable, chest x-ray shows no acute findings. Symptoms have improved though she remains a bit nauseated but no further vomiting. Abdomen remains benign. I have advised on supportive care and GI follow-up. Return precautions given for worsening or persistent symptoms. - Differential Diagnosis Gastritis, GERD, pancreatitis, peptic ulcer, dehydration Critical care attestation.: If time is entered above; I have spent that time in minutes in the direct care of this critically ill patient, excluding procedure time. ED Disposition Clinical Impression: Nausea & vomiting Qualifiers: Vomiting type: unspecified Vomiting Intractability: non-intractable Qualified Code(s): R11.2 - Nausea with vomiting, unspecified GERD (gastroesophageal reflux disease) Qualifiers: Esophagitis presence: esophagitis presence not specified Qualified Code(s): K21.9 - Gastro-esophageal reflux disease without esophagitis Disposition: TO HOME OR SELFCARE Is pt being admited?: No Condition: Stable Instructions: Nausea and Vomiting, Adult, [id number], Gastroesophageal Reflux Disease, Adult, [id number], Abdominal Pain (ED) Prescriptions: Promethazine [Phenergan] 25 mg PO Q6HR PRN #12 tab PRN Reason: Nausea Promethazine [Phenergan SUPPOS] 25 mg [place] Q6H PRN #12 supp.rect PRN Reason: Nausea And Vomiting Pantoprazole [Protonix TAB] 40 mg PO DAILY #30 tablet Referrals: PRIMARY CAREMD [Primary Care Provider] - 3-5 Days NATALI GUNTER MD [Staff Physician] - 3-5 Days Time of Disposition: 11:22
[2021-02-15 08:52] LABS: Basophils % (Auto) 0.3 % (0.0-1.8); Hematocrit 37.2 % (30.3-42.9); Hemoglobin 12.6 gm/dl (10.1-14.3); Lymphocytes # (Auto) 1.1 K/mm3 (1.2-5.4); Lymphocytes % (Auto) 18.6 % (13.4-35.0); Mean Corpuscular HGB Conc 34 % (30-34); Mean Corpuscular Volume 82 fl (79-97); Monocytes # (Auto) 0.4 K/mm3 (0.0-0.8); Monocytes % (Auto) 6.5 % (0.0-7.3); Platelet Count 394 K/mm3 (140-440); Red Blood Count 4.56 M/mm3 (3.65-5.03); Red Cell Distribution Width 13.5 % (13.2-15.2)
[2021-02-15 09:18] LABS: Alanine Aminotransferase 14 units/L (7-56); Albumin 4.5 g/dL (3.9-5); Blood Urea Nitrogen 16 mg/dL (7-17); Calcium 9.5 mg/dL (8.4-10.2); Hemolysis Index 9
[2021-02-15 09:19] LABS: BUN/Creatinine Ratio 32
[2021-02-15] MEDS ORDERED: MORPHINE 4 MG/1 ML INJ IV ONE (09:28)
[2021-02-15] MEDS ORDERED: LORazepam 2 MG/ML VIAL IV ONE (11:12)
--- NOTE | 2021-02-15 11:15 | XRay Report ---
CHEST 2 VIEWS INDICATION / CLINICAL INFORMATION: Chest pain. COMPARISON: None available. FINDINGS: SUPPORT DEVICES: None. HEART / MEDIASTINUM: No significant abnormality. LUNGS / PLEURA: No significant pulmonary or pleural abnormality. No pneumothorax. ADDITIONAL FINDINGS: No significant additional findings. IMPRESSION: 1. No acute findings. Signer Name: Keith Felipe MD Signed: 02/15/2021 11:11 AM Workstation Name: [id number]
[2021-02-15 11:21] LABS: Bilirubin,Urine NEG (Negative); Blood,Urine LG (Negative); Color,Urine Yellow (Yellow); Hyaline Casts,Urine 6 /LPF; Mucus,Urine 3+ /HPF; Urobilinogen,Urine < 2.0 mg/dL (<2.0)
[2021-02-15 11:49] LABS: Protein,Urine >500 mg/dL (Negative)
--- NOTE | 2021-02-18 11:39 | Electrocardiograph Report ---
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
== END 2021-02-15 13:17 | disposition home or self-care (01) ==
LOC: ED 07:35
DX: K21.9 Gastro-esophageal reflux disease without esophagitis (principal); R11.2 Nausea with vomiting, unspecified; Z90.49 Acquired absence of other specified parts of digestive tract; Z98.890 Other specified postprocedural states; Z79.899 Other long term (current) drug therapy; Z88.8 Allergy status to other drugs, medicaments and biological substances
CPT/HCPCS: 36415; 71046; 80053; 81001; 83690; 84484; 84703; 85025; 93005; 96361; 96374; 96375; 96376; 99284; J2060; J2270; J2405; J7120

== ENCOUNTER 2021-04-30 21:15 | Emergency (ER) | payer OTHER ==
[2021-04-30 21:50] VITALS: BP 108/79
[2021-04-30] MEDS ORDERED: IBUPROFEN 800 MG TAB PO ONE (22:48)
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
== END 2021-05-01 00:12 | disposition home or self-care (01) ==
LOC: ED 21:15
DX: S50.812A Abrasion of left forearm, initial encounter (principal); S02.2XXD Fracture of nasal bones, subsequent encounter for fracture with routine healing; M54.2 Cervicalgia; K21.9 Gastro-esophageal reflux disease without esophagitis; G43.909 Migraine, unspecified, not intractable, without status migrainosus; Z87.442 Personal history of urinary calculi; Z98.890 Other specified postprocedural states; Z79.899 Other long term (current) drug therapy; Z88.8 Allergy status to other drugs, medicaments and biological substances; V87.7XXA Person injured in collision between other specified motor vehicles (traffic), initial encounter; Y93.89 Activity, other specified; Y92.488 Other paved roadways as the place of occurrence of the external cause; Y99.8 Other external cause status
CPT/HCPCS: 72040; 99283

== ENCOUNTER 2021-05-27 11:36 | Emergency (ER) | payer SELFPAY | END 2021-05-27 13:48 | LOC: ED 11:36 | DX: R10.2 Pelvic and perineal pain (principal); Z53.21 Procedure and treatment not carried out due to patient leaving prior to being seen by health care provider ==

== ENCOUNTER 2021-08-31 12:16 | Emergency (ER) | payer SELFPAY ==
[2021-08-31] MEDS ORDERED: ONDANSETRON 4 MG/2 ML INJ IV ONE (12:39)
[2021-08-31] MEDS ORDERED: HYOSCYAMINE SUBL 0.125 MG TAB SL ONE (12:40)
[2021-08-31] MEDS ORDERED: PANTOPRAZOLE 40 MG INJ IV STA (12:41)
[2021-08-31 13:01] LABS: Bilirubin,Urine NEG (Negative); Blood,Urine MOD (Negative); Color,Urine Amber (Yellow); RBC,Urine < 1.0 /HPF (0.0-6.0); WBC,Urine < 1.0 /HPF (0.0-6.0)
[2021-08-31 13:09] LABS: Amphetamine Screen,Urine Negative; Benzodiazepines Screen,Urine Negative; Cocaine Screen,Urine Negative; Methadone Screen,Urine Negative; Opiate Screen,Urine Negative
[2021-08-31] MEDS ORDERED: MORPHINE 4 MG/1 ML INJ IV STA (13:33)
[2021-08-31 13:53] LABS: Cannabinoid Screen,Urine Positive
[2021-08-31 14:42] LABS: Alanine Aminotransferase 26 units/L (7-56); Albumin 4.3 g/dL (3.9-5); Blood Urea Nitrogen 15 mg/dL (7-17); Calcium 9.5 mg/dL (8.4-10.2); Hemolysis Index 21
[2021-08-31 14:52] LABS: Basophils % (Auto) 0.4 % (0.0-1.8); Eosinophils # (Auto) 0.1 K/mm3 (0.0-0.4); Eosinophils % (Auto) 0.7 % (0.0-4.3); Hematocrit 39.2 % (30.3-42.9); Hemoglobin 12.4 gm/dl (10.1-14.3); Lymphocytes # (Auto) 2.9 K/mm3 (1.2-5.4); Lymphocytes % (Auto) 24.7 % (13.4-35.0); Mean Corpuscular HGB Conc 32 % (30-34); Mean Corpuscular Volume 82 fl (79-97); Monocytes % (Auto) 8.8 % (0.0-7.3); Platelet Count 396 K/mm3 (140-440); Red Blood Count 4.79 M/mm3 (3.65-5.03); Red Cell Distribution Width 14.1 % (13.2-15.2)
[2021-08-31 15:18] LABS: BUN/Creatinine Ratio 21
--- NOTE | 2021-08-31 17:47 | Cat Scan Report ---
CT ABDOMEN AND PELVIS WITH CONTRAST INDICATION / CLINICAL INFORMATION: upper ABD Pain. TECHNIQUE: Axial CT images were obtained through the abdomen and pelvis after 100 mL Omnipaque [address] scans at this location are performed using CT dose reduction for ALARA by means of automated exposure control. COMPARISON: CT dated 07/27/20 FINDINGS: LOWER CHEST: No significant abnormality. LIVER: No significant abnormality. GALLBLADDER: Cholecystectomy. BILE DUCTS: No significant abnormality. PANCREAS: No significant abnormality. SPLEEN: No significant abnormality. ADRENALS: No significant abnormality. RIGHT KIDNEY / URETER: No significant abnormality. LEFT KIDNEY / URETER: No significant abnormality. STOMACH / SMALL BOWEL: No significant abnormality. COLON: No significant abnormality. APPENDIX: No significant abnormality. PERITONEUM: No free fluid. No free air. No fluid collection. LYMPH NODES: No significant adenopathy. AORTA / ARTERIES: No significant abnormality. IVC / VEINS: No significant abnormality. URINARY BLADDER: No significant abnormality. REPRODUCTIVE ORGANS: Contracted right ovarian cyst. No acute abnormality. ADDITIONAL FINDINGS: None. 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 No acute osseous abnormality. IMPRESSION: 1. No acute process in the abdomen or pelvis. No significant change. Signer Name: Geronimo Zarate MD Signed: 08/31/2021 5:42 PM Workstation Name: [id number]
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
[2021-08-31 18:34] VITALS: BP 122/82
== END 2021-08-31 18:35 | disposition home or self-care (01) ==
LOC: ED 12:16
DX: K29.70 Gastritis, unspecified, without bleeding (principal); F12.188 Cannabis abuse with other cannabis-induced disorder; K21.9 Gastro-esophageal reflux disease without esophagitis; G43.909 Migraine, unspecified, not intractable, without status migrainosus; Z98.890 Other specified postprocedural states; Z88.8 Allergy status to other drugs, medicaments and biological substances; Z79.899 Other long term (current) drug therapy
CPT/HCPCS: 36415; 74177; 80053; 80307; 81001; 83690; 85025; 96374; 96375; 99284; C9113; J2270; J2405; Q9967